=== PATIENT | female | born 1950 | race Caucasian/White ===

== ENCOUNTER 2018-09-08 10:13 | Inpatient (IN) | payer MEDICARE ==
[~2018-09-08] VITALS: Ht 157.5 cm; Wt 55.0 kg
[~2018-09-08 10:13] MED LIST: MAG355OR18 PO; PANT-47 PO
[2018-09-08] MEDS ORDERED: loperamide 2mg capsule PO PRN (11:20)
[2018-09-08] MEDS ORDERED: tuberculin, purif. prot. deriv. 5 units/0.1ml ID ONE (11:20)
[2018-09-08] MEDS ORDERED: acetaminophen 325mg tablet PO PRN ×2 (11:20)
[2018-09-08] MEDS ORDERED: mag hydrox/Alum hydrox/simeth 30ml oral suspension PO PRN (11:20)
[2018-09-08] MEDS ORDERED: hydrOXYzine 25 MG tablet PO PRN (11:20)
--- NOTE | 2018-09-08 12:49 | NUR ---
Admission note. Client admitted to [facility] Unit at 1130 hours today. Patient is here on a 5150 hold for DTS after she took an intentional overdose of her prescription medications in an attempt to end her life. She was on PCU prior to admission to [facility] and stabilized there. Client was pleasant and compliant with admission process. Pt was read her advisement and understands the reasons for her admission. Client currently expresses no desire to harm herself or others. Belongings were checked and placed per protocol. MRSA swab collected and all assessments for admission were completed. Client is alert and oriented x 4. Vital signs are currently stable..
[2018-09-08] MEDS ORDERED: duloxetine 30mg CAPSULE.DR PO ONE (18:10)
[2018-09-08] MEDS ORDERED: LORazepam 1 MG tablet PO PRN (18:10)
[2018-09-08 20:00] VITALS: BP 148/81
[2018-09-08] MEDS: quetiapine 100mg tablet PO SCH (21:36)
--- NOTE | 2018-09-09 01:00 | NUR ---
Nursing Progress Note: Legal hold: Voluntary Client on involuntary status for DTS. Report received from nurse Ingris RN with use of SBAR. Why are they here: Patient is here on a 5150 hold for DTS after she took an intentional overdose of her prescription medications in an attempt to end her life after experiencing overwhelming anxiety/stress resulting from multiple life stressors. She was stabilized on PCU prior to admission to [facility]. Assessment What has happened this shift: Pt was visible on unit at shift change. Pt was later seen sitting in the group waiting for visitation. Pt's and son came to visit with patient. Appropriate conversation appeared to be happening. 1:1 assessment was completed at bedside along with PPD placement. Pt is alert and explains why she is here. Pt doesn't seem grasp the severity of her suicide attempt. Pt is very nonchalant bloom she speaks about it. Pt states she has no thoughts of harming her self at the time this interview. Pt states she has been depressed. Pt has many stressors that have contributed to her feeling this way. Pt states she feels overwhelmed because of financial troubles. Pt wants to sell her house, but her doesn't. "I feel like my family is falling apart." Pt states she has some resentment towards her because he is providing for them financially. Pt reports some coping skills are reading the Bible and/or listening to nondenominational music, pt reports these have not been helping and needs help. Pt states she feels safe here. Pt is being started on Cymbalta 30mg daily and Seroquel 100mg HS. S/I, H/I: Pt denies. None observed. A/VH: Pt denies. None observed. Sleep: Currently sleeping. See sleep assessment notation. ADL's: Independent. Pt uses a pillow to sit for back pain. Group attendance: restaurant shift leader, no group. Were meds taken: Medication compliant. Any med S/E: None reported or observed. Mental Status Exam Appearance: Neat and clean, dressed appropriate for unit. Eye contact: Good Behavior: Cooperative, guarded Speech:Soft, normal rate/rhythm Mood: Depressed, anxious, quiet Affect: Constricted Thought process: Linear Thought Content: Pt answers questions, but doesn't offer more conversation Cognition: Intact Insight: Fair Judgment: Poor Interventions PRN's used: None Therapeutic interventions: 1:1 to assess for severity of symptoms, therapeutic listening/conversation, orient to unit and reinforce reality, medication administration/education/monitoring, Q 15 min safety checks. Restraints/seclusion/emergency medication: N/A Justification of Continued Inpatient Treatment: Pt needs interruption of current crisis with initiation and ajustment of medication in a safe and therapeutic environment.
[2018-09-09 07:36] VITALS: BP 128/69
[2018-09-09] MEDS: duloxetine 30mg CAPSULE.DR PO SCH (07:57)
[2018-09-09] MEDS: magnesium hydroxide 30ml (MOM) UD suspension PO PRN (09:43)
--- NOTE | 2018-09-09 10:33 | NUR ---
Malnutrition consult: Pt admit w/ major recurrent depression. PO 75-100% meals meeting needs. Per RN; pt requested pureed/thin liquid diet due to pain w/ swallowing at this time; no hx dysphagia. Given lack of accurate wt hx, good PO, no edema/wounds, and normal strength pt does not meet malnutrition criteria at this time. Will continue to monitor. Addendum: 09/09/18 at [address] Amended: Links added.
[2018-09-09 10:44] LABS: CHOL/HDL RATIO 2.9 (0.00-4.99); CHOLESTEROL 213 MG/DL (0-200); HDL CHOLESTEROL 73 MG/DL (35-60); LDL CHOLESTEROL 123 MG/DL (50-100); TRIGLYCERIDES 92 MG/DL (20-135)
--- NOTE | 2018-09-09 11:43 | NUR ---
Nursing Progress Note: Legal hold: 5150 Client on involuntary status for DTS. Report received from nurse Alka Brown RN with use of SBAR. Why are they here: Patient is here on a 5150 hold for DTS after she took an intentional overdose of her prescription medications in an attempt to end her life after experiencing overwhelming anxiety/stress resulting from multiple life stressors. She was stabilized on PCU prior to admission to [facility]. Assessment What has happened this shift: Patient awakened for medications and breakfast. She is pleasant and cooperative. 1:1 in patients room. She initially stated that she had an unintentional overdose, but quickly corrected herself. Pt. states that she has no interests or hobbies, that she lies in bed all the time, and has no energy to do anything. Pt. states that they have a large home on property and they cannot adequately keep it up. She feels that she would be happier in a smaller home. She is worried about finances and does not think they should have took on a large mortgage at this stage in their life. She worries about her 's health, high BP, high blood sugars; and "what if he , I wouldn't know how to do anything". Patient's did come in for visit and looks relatively healthy. Pt perseverates on the negatives, and does not believe there is anything worth living for. S/I, H/I: Pt denies. A/VH: Pt denies. None observed. Sleep: 7 hrs. at NOC. ADL's: Independent. Group attendance: Yes. Were meds taken: Medication compliant. Any med S/E: None reported or observed. Mental Status Exam Appearance: Neat and clean, dressed appropriate for unit. Eye contact: Good Behavior: Cooperative, pleasant Speech:Soft, normal rate/rhythm Mood: Depressed, anxious, quiet Affect: Constricted Thought process: Linear. Poverty of thought. Anhedonia. Thought Content: Financial concerns, worries excessively. Cognition: Intact Insight: Poor. Judgment: Poor Interventions PRN's used: None Therapeutic interventions: 1:1 to assess for severity of symptoms, therapeutic listening/conversation, orient to unit and reinforce reality, medication administration/education/monitoring, Q 15 min safety checks. Restraints/seclusion/emergency medication: N/A Justification of Continued Inpatient Treatment: Pt needs interruption of current crisis with initiation and adjustments of medication in a safe and therapeutic environment to prevent further decompensation and likelihood of inpatient readmission.
[2018-09-09] MEDS: pantoprazole 40mg Tablet.DR PO SCH (12:37)
--- NOTE | 2018-09-09 18:39 | NUR ---
Patient in room MH 322. I have received report from CHENTE Amado and had the opportunity to ask questions and assume patient care.
[2018-09-09 19:37] VITALS: BP 105/75
[2018-09-09] MEDS: quetiapine 100mg tablet PO SCH (20:53)
--- NOTE | 2018-09-10 00:53 | NUR ---
Nursing Progress Note: Legal hold: 5150 Client on involuntary status for DTS. Report received from nurse Ingris RN with use of SBAR. Why are they here: Patient is here on a 5150 hold for DTS after she took an intentional overdose of her prescription medications in an attempt to end her life after experiencing overwhelming anxiety/stress resulting from multiple life stressors. She was stabilized on PCU prior to admission to [facility]. Assessment What has happened this shift: Patient was lying in bed at beginning of shift. States she suffers from depression due to the health of her who suffers from cirrhosis of the liver, increased blood pressures and blood sugars, and who has prostate cancer. She states her has a good attitude towards his health and he feels his outcome will be okay. She further states she is trying to have a positive attitude such as he demonstrates. Patient continued to stay in bed for the remainder of the shift only exiting her bed when using the bathroom or to sit up to take medications. Pleasant demeanor. S/I, H/I: Pt denies. A/VH: Pt denies. None observed. Sleep: ADL's: Independent. Group attendance: N/A Were meds taken: Medication compliant. Any med S/E: None reported or observed. Mental Status Exam Appearance: Neat and clean, dressed appropriate for unit. Eye contact: Good Behavior: Cooperative, pleasant Speech:Soft, normal rate/rhythm Mood: Depressed, anxious, quiet Affect: Constricted Thought process: Linear. Poverty of thought. Anhedonia. Thought Content: Worries excessively. Cognition: Intact Insight: Poor. Judgment: Poor Interventions PRN's used: None Therapeutic interventions: 1:1 to assess for severity of symptoms, therapeutic listening/conversation, orient to unit and reinforce reality, medication administration/education/monitoring, Q 15 min safety checks. Restraints/seclusion/emergency medication: N/A Justification of Continued Inpatient Treatment: Pt needs interruption of current crisis with initiation and adjustments of medication in a safe and therapeutic environment to prevent further decompensation and likelihood of inpatient readmission.
[2018-09-10 08:16] VITALS: BP 141/80
[2018-09-10] MEDS: pantoprazole 40mg Tablet.DR PO SCH (08:24)
[2018-09-10] MEDS: duloxetine 30mg CAPSULE.DR PO SCH (08:24)
--- NOTE | 2018-09-10 12:40 | NUR ---
Nursing Progress Note: Legal hold: 5150 Client on involuntary status for DTS. Report received from nurse Alka Brown RN with use of SBAR. Why are they here: Patient is here on a 5150 hold for DTS after she took an intentional overdose of her prescription medications in an attempt to end her life after experiencing overwhelming anxiety/stress resulting from multiple life stressors. She was stabilized on PCU prior to admission to [facility]. Assessment What has happened this shift: Patient awakened for breakfast and medications. Patient is polite, calm and cooperative. 1:1 in patients room. She states that she received some literature on CBT and figuring out how to change the way she can change her negative perspective. Educated her on daily goals and snf goals, which she has not done. States that her does everything for her, and has stopped trying to push her to do things. is now in [place] for family reunion, she perseverates on the bad things that could happen to him. Attempted to reframe things for her, patient did seem a little encouraged.m Patient goes by "Ann", and likes room temp water. Patient complains of back pain and is encouraged to increase dose of Cymbalta, as this medication has a dual purpose of pain management/antidepressant. Pt. is hesitant to take medications, even Tylenol. S/I, H/I: Pt denies. A/VH: Pt denies. None observed. Sleep: 8.[address] [facility]. ADL's: Independent. Group attendance: Yes. Were meds taken: Medication compliant. Any med S/E: None reported or observed. Mental Status Exam Appearance: Neat and clean, dressed appropriate for unit. Eye contact: Good Behavior: Cooperative, pleasant Speech:Soft, normal rate/rhythm Mood: Depressed, anxious, quiet Affect: Constricted Thought process: Linear. Poverty of thought. Anhedonia. Thought Content: Financial concerns, worries excessively about . Cognition: Intact Insight: Poor. Judgment: Poor Interventions PRN's used: None Therapeutic interventions: 1:1 to assess for severity of symptoms, therapeutic listening/conversation, orient to unit and reinforce reality, CBT education, medication administration/education/monitoring, Q 15 min safety checks. Restraints/seclusion/emergency medication: N/A Justification of Continued Inpatient Treatment: Pt needs interruption of current crisis with initiation and adjustments of medication in a safe and therapeutic environment to prevent further decompensation and likelihood of inpatient readmission.
[2018-09-10 20:17] VITALS: BP 143/76
[2018-09-10] MEDS: quetiapine 100mg tablet PO SCH (20:20)
--- NOTE | 2018-09-10 21:04 | NUR ---
Nursing Progress Note: Legal hold: 5150 Client on involuntary status for DTS. Report received from nurse Ingris RN with use of SBAR. Why are they here: Patient is here on a 5150 hold for DTS after she took an intentional overdose of her prescription medications in an attempt to end her life after experiencing overwhelming anxiety/stress resulting from multiple life stressors. She was stabilized on PCU prior to admission to [facility]. Assessment What has happened this shift: Patient awake and lying in bed. She states that her back is hurting and thats why she is lying down. Patient is polite, calm and cooperative. She perseverates on the bad things that could happen to him. Attempted to reframe things for her, patient did seem a little encouraged.m Patient goes by "Ann", and likes room temp water. Patient complains of back pain and is encouraged to increase dose of Cymbalta, as this medication has a dual purpose of pain management/antidepressant. Pt. is hesitant to take medications, even Tylenol. S/I, H/I: Pt denies. A/VH: Pt denies. None observed. Sleep: 8.25 hrs. at NOC. ADL's: Independent. Group attendance: Yes. Were meds taken: Medication compliant. Any med S/E: None reported or observed. Mental Status Exam Appearance: Neat and clean, dressed appropriate for unit. Eye contact: Good Behavior: Cooperative, pleasant Speech:Soft, normal rate/rhythm Mood: Depressed, anxious, quiet Affect: Constricted Thought process: Linear. Poverty of thought. Anhedonia. Thought Content: Financial concerns, worries excessively about . Cognition: Intact Insight: Poor. Judgment: Poor Interventions PRN's used: None Therapeutic interventions: 1:1 to assess for severity of symptoms, therapeutic listening/conversation, orient to unit and reinforce reality, CBT education, medication administration/education/monitoring, Q 15 min safety checks. Restraints/seclusion/emergency medication: N/A Justification of Continued Inpatient Treatment: Pt needs interruption of current crisis with initiation and adjustments of medication in a safe and therapeutic environment to prevent further decompensation and likelihood of inpatient readmission.
[2018-09-11] MEDS: pantoprazole 40mg Tablet.DR PO SCH (07:45)
[2018-09-11] MEDS: duloxetine 30mg CAPSULE.DR PO SCH (07:45)
[2018-09-11 07:56] VITALS: BP 141/70
--- NOTE | 2018-09-11 17:17 | NUR ---
Nursing Progress Note: Legal hold: 5150 Client on involuntary status for DTS. Report received from nurse Sari RN with use of SBAR. Why are they here: Patient is here on a 5150 hold for DTS after she took an intentional overdose of her prescription medications in an attempt to end her life after experiencing overwhelming anxiety/stress resulting from multiple life stressors. She was stabilized on PCU prior to admission to [facility]. Assessment What has happened this shift: Patient goes by "Ann." Patient awake and lying in bed. Patient is polite, calm and cooperative. Her main complaint is not being able to sleep. Reports she woke up at 0300 and was unable to go back to sleep. She requested to move beds as she c/o the light shining in her eyes. Once her bed was switched she later c/o needing a med switch to assist with sleep. She reports feeling depressed today but denies SI. Patient complains of headache but denies wanting any PRNs. She requests to have her razor to trim her facial hair. Denies any SEs at this time, none were objectively observed. S/I, H/I: Pt denies. A/VH: Pt denies. None observed. Sleep: 8.75 hrs NOC. ADL's: Independent. Group attendance: Yes. Were meds taken: Medication compliant. Any med S/E: None reported or observed. Mental Status Exam Appearance: Neat and clean, dressed appropriate for unit. Eye contact: Direct Behavior: Cooperative, pleasant Speech:Soft, normal rate/rhythm Mood: Depressed Affect: congruent Thought process: Anhedonia. Thought Content: Worries excessively about & lack of sleep Cognition: Intact Insight: Poor. Judgment: Poor Interventions PRN's used: None Therapeutic interventions: 1:1 to assess for severity of symptoms, therapeutic listening/conversation, orient to unit and reinforce reality, CBT education, medication administration/education/monitoring, Q 15 min safety checks. Restraints/seclusion/emergency medication: N/A Justification of Continued Inpatient Treatment: Pt needs interruption of current crisis with initiation and adjustments of medication in a safe and therapeutic environment to prevent further decompensation and likelihood of inpatient readmission.
[2018-09-11 20:19] VITALS: BP 147/76
[2018-09-11] MEDS ORDERED: quetiapine 100mg tablet PO SCH (21:00)
--- NOTE | 2018-09-11 21:49 | NUR ---
Nursing Progress Note: Legal hold: 5150 Client on involuntary status for DTS. Report received from nurse Sari RN with use of SBAR. Why are they here: Patient is here on a 5150 hold for DTS after she took an intentional overdose of her prescription medications in an attempt to end her life after experiencing overwhelming anxiety/stress resulting from multiple life stressors. She was stabilized on PCU prior to admission to [facility]. Assessment What has happened this shift: Patient goes by "Ann." Patient awake and lying in bed. Patient is polite, calm and cooperative. Her main complaint is not being able to sleep. Reports she woke up at 0300 and was unable to go back to sleep. She requested to move beds as she c/o the light shining in her eyes. Once her bed was switched she later c/o needing a med switch to assist with sleep. She reports feeling depressed today but denies SI. Patient complains of headache but denies wanting any PRNs.Patient spoke with the provider and received a increase Seroquel for sleep. Denies any SEs at this time, none were objectively observed. S/I, H/I: Pt denies. A/VH: Pt denies. None observed. Sleep: 8.75 hrs NOC. ADL's: Independent. Group attendance: Yes. Were meds taken: Medication compliant. Any med S/E: None reported or observed. Mental Status Exam Appearance: Neat and clean, dressed appropriate for unit. Eye contact: Direct Behavior: Cooperative, pleasant Speech:Soft, normal rate/rhythm Mood: Depressed Affect: congruent Thought process: Anhedonia. Thought Content: Worries excessively about & lack of sleep Cognition: Intact Insight: Poor. Judgment: Poor Interventions PRN's used: None Therapeutic interventions: 1:1 to assess for severity of symptoms, therapeutic listening/conversation, orient to unit and reinforce reality, CBT education, medication administration/education/monitoring, Q 15 min safety checks. Restraints/seclusion/emergency medication: N/A Justification of Continued Inpatient Treatment: Pt needs interruption of current crisis with initiation and adjustments of medication in a safe and therapeutic environment to prevent further decompensation and likelihood of inpatient readmission.
[2018-09-12 07:56] VITALS: BP 122/74
[2018-09-12] MEDS: pantoprazole 40mg Tablet.DR PO SCH (08:00)
[2018-09-12] MEDS: duloxetine 30mg CAPSULE.DR PO SCH (08:00)
--- NOTE | 2018-09-12 15:30 | NUR ---
Nursing Progress Note: Legal hold: VOL Client on involuntary status for DTS. Report received from nurse Sari RN with use of SBAR. Why are they here: Patient initially here on a 5150 hold, now here [facility] for DTS after she took an intentional overdose of her prescription medications in an attempt to end her life after experiencing overwhelming anxiety/stress resulting from multiple life stressors. She was stabilized on PCU prior to admission to [facility]. Assessment What has happened this shift: Patient goes by "Ann." Patient asleep at change of shift. Patient is polite, calm and cooperative. She reports feeling depressed today but denies SI. Today patient complains of dizziness from the Cymbalta but denies wanting any PRNs. Her BP was 122/74 this AM. Yesterday pt c/o headache from Cymbalta. She requests to have her razor from her locked belongings to trim her facial hair, techs notified. Pt continues to c/o lack of sleep but does confirm she remembers having dreams and reported sleep from NOC shift was 8.0hrs. Pts son visited today and brought her Progesterone 100mg capsules prescribed by Dr Wells. Slat Basket Maker Machine notified Dr. Vann and placed them in the pharmacy to be stored. Dr Vann resumed her Progesterone 300mg QHS order today. Slat Basket Maker Machine also submitted DESTINY for Dr Wells to assist her hormone therapy. S/I, H/I: Pt denies. A/VH: Pt denies. None observed. Sleep: 8.0 hrs NOC, pt denies feeling well rested. ADL's: Independent. Group attendance: Were meds taken: Medication compliant. Any med S/E: Pt c/o headache from Cymbalta yest, today c/o dizziness (BP 122/74) Mental Status Exam Appearance: Neat and clean, dressed appropriate for unit. Eye contact: Direct Behavior: Cooperative, pleasant Speech: Soft, normal rate/rhythm Mood: Depressed Affect: congruent Thought process: Anhedonia. Thought Content: Worries excessively about , lack of sleep & SEs from Cymbalta Cognition: Intact Insight: Poor Judgment: Poor Interventions PRN's used: Therapeutic interventions: 1:1 to assess for severity of symptoms, therapeutic listening/conversation, orient to unit and reinforce reality, CBT education, medication administration/education/monitoring, Q 15 min safety checks. Restraints/seclusion/emergency medication: N/A Justification of Continued Inpatient Treatment: Pt needs interruption of current crisis with initiation and adjustments of medication in a safe and therapeutic environment to prevent further decompensation and likelihood of inpatient readmission.
[2018-09-12 20:00] VITALS: BP 107/61
[2018-09-12] MEDS ORDERED: TYPE IN GENERIC & BRAND NAME OF PATIENT MED STRENGTH & FORM PO SCH (21:00)
[2018-09-12] MEDS ORDERED: PROGESTERONE PO SCH ×2 (21:00)
[2018-09-12] MEDS ORDERED: quetiapine 100mg tablet PO SCH (21:00)
[2018-09-12] MEDS ORDERED: PROGESTERONE 300 MG PO SCH (21:00)
--- NOTE | 2018-09-12 21:56 | NUR ---
vazquez Progress Note: Legal hold: [facility] Client on involuntary status for DTS. Report received from nurse Paul RN with use of SBAR. Why are they here: Patient initially here on a 5150 hold, now here [facility] for DTS after she took an intentional overdose of her prescription medications in an attempt to end her life after experiencing overwhelming anxiety/stress resulting from multiple life stressors. She was stabilized on PCU prior to admission to [facility]. Assessment What has happened this shift: Patient goes by "Ann." Patient in room at change of shift. Patient is polite, calm and cooperative. She reports feeling depressed today but denies SI. Pt continues to c/o lack of sleep but does confirm she remembers having dreams and reported sleep from NOC shift was 8.0hrs. Pts son visited today and brought her Progesterone 100mg capsules prescribed by Dr Wells. Plant Wrapper notified Dr. Vann and placed them in the pharmacy to be stored. Dr Vann resumed her Progesterone 300mg QHS order today. Plant Wrapper also submitted DESTINY for Dr Wells to assist her hormone therapy. S/I, H/I: Pt denies. A/VH: Pt denies. None observed. Sleep: 8.0 hrs NOC, pt denies feeling well rested. ADL's: Independent. Group attendance: Were meds taken: Medication compliant. Any med S/E: Pt c/o headache from Cymbalta yest, today c/o dizziness (BP 122/74) Mental Status Exam Appearance: Neat and clean, dressed appropriate for unit. Eye contact: Direct Behavior: Cooperative, pleasant Speech: Soft, normal rate/rhythm Mood: Depressed Affect: congruent Thought process: Anhedonia. Thought Content: Worries excessively about , lack of sleep & SEs from Cymbalta Cognition: Intact Insight: Poor Judgment: Poor Interventions PRN's used: Therapeutic interventions: 1:1 to assess for severity of symptoms, therapeutic listening/conversation, orient to unit and reinforce reality, CBT education, medication administration/education/monitoring, Q 15 min safety checks. Restraints/seclusion/emergency medication: N/A Justification of Continued Inpatient Treatment: Pt needs interruption of current crisis with initiation and adjustments of medication in a safe and therapeutic environment to prevent further decompensation and likelihood of inpatient readmission.
[2018-09-12] MEDS: quetiapine 100mg tablet PO PRN (22:29)
[2018-09-13 07:29] VITALS: BP 113/64
[2018-09-13] MEDS: pantoprazole 40mg Tablet.DR PO SCH (07:50)
[2018-09-13] MEDS: duloxetine 30mg CAPSULE.DR PO SCH (07:50)
[2018-09-13] MEDS: magnesium hydroxide 30ml (MOM) UD suspension PO PRN (08:27)
--- NOTE | 2018-09-13 16:39 | NUR ---
NURSING PROGRESS NOTE Legal hold: VOL Client on involuntary status for DTS. Report received from nurse Sari RN with use of SBAR. Why are they here: Patient initially here on a 5150 hold, now here VOL for DTS after she took an intentional overdose of her prescription medications in an attempt to end her life after experiencing overwhelming anxiety/stress resulting from multiple life stressors. She was stabilized on PCU prior to admission to [facility]. Assessment What has happened this shift: Patient goes by "Ann." The patient was asleep at change of shift. Depressed mood and constricted affect. Pleasant and cooperative. Attends groups and meals with peers. C/O back pain from osteoporosis which is "only relieved by laying down." Reports feeling overwhelmed and having anxiety about her 's health, and not knowing about "the finances" if he were to . The patient has distorted thinking, for example, she has had a BM yesterday and today which she stated were "OK" but still asked for MOM, her visits her and appears in reasonable health. She is open to working on CBT and understands it can help with distortion of thoughts. Denies suicidal thoughts today. S/I, H/I: Pt denies. A/VH: Pt denies. None observed. Sleep: Naps ADL's: Independent. Group attendance: x2 Were meds taken: Medication compliant. Any med S/E: None Mental Status Exam Appearance: Neat and clean, dressed appropriate for unit. Eye contact: Direct Behavior: Cooperative, pleasant Speech: Soft, normal rate/rhythm Mood: Depressed Affect: constricted Thought process: Anhedonia. Thought Content: Worries excessively about , lack of sleep & SEs from Cymbalta Cognition: Alert and oriented Insight: Poor Judgment: Poor Interventions PRN's used: None Therapeutic interventions: 1:1 to assess for severity of symptoms, therapeutic listening/conversation, orient to unit and reinforce reality, CBT education, medication administration/education/monitoring, Q 15 min safety checks. Restraints/seclusion/emergency medication: N/A Justification of Continued Inpatient Treatment: Pt needs interruption of current crisis with initiation and adjustments of medication in a safe and therapeutic environment to prevent further decompensation and likelihood of inpatient readmission.
[2018-09-13 19:30] VITALS: BP 134/73
[2018-09-13] MEDS ORDERED: TYPE IN GENERIC & BRAND NAME OF PATIENT MED STRENGTH & FORM PO SCH (21:00)
[2018-09-13] MEDS: quetiapine 100mg tablet PO PRN (22:51)
--- NOTE | 2018-09-14 00:16 | NUR ---
NURSING PROGRESS NOTE Legal hold: VOLUNTARY Client on voluntary status for DTS. Report received from nurse Eddie RN with use of SBAR. Why are they here: Patient initially here on a 5150 hold, now here VOL for DTS after she took an intentional overdose of her prescription medications in an attempt to end her life after experiencing overwhelming anxiety/stress resulting from multiple life stressors. She was stabilized on PCU prior to admission to [facility]. Assessment What has happened this shift: Pt was in her room at shift change. Pt is up wanting to use phone, then returns and is working on a book she received from her son. Pt reports anxiety and depression both a /10. Pt reports she has "a little hope." Pt has a blunted affect. When asked how she is feeling "I feel numb, I feel blah." Pt still reports passive SI. Pt reports anhedonia, "I was out going and energetic just a few months ago." Pt feels she has to take care of everything with her family and this overwhelms hers. [place], when asked how pt feels about this "I am okay because I able to talk to him." Pt's speech is soft and monotone. Pt received a visit from her son and stated "it was good." S/I, H/I: Pt reports passive SI. A/VH: Pt denies. None observed. Sleep: Currently sleeping. See sleep assessment notation. ADL's: Independent. 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 Any med S/E: None reported or observed Mental Status Exam Appearance: Neat and clean, dressed appropriate for unit. Eye contact: Direct Behavior: Cooperative, pleasant Speech: Soft, normal rate/rhythm Mood: Depressed Affect: Constricted with some brightening Thought process: Linear Thought Content: Worries excessively about . Cognition: Alert and oriented Insight: Poor Judgment: Poor Interventions PRN's used: Seroquel Therapeutic interventions: 1:1 to assess for severity of symptoms, therapeutic listening/conversation, orient to unit and reinforce reality, CBT education, medication administration/education/monitoring, Q 15 min safety checks. Restraints/seclusion/emergency medication: N/A Justification of Continued Inpatient Treatment: Pt needs interruption of current crisis with initiation and adjustments of medication in a safe and therapeutic environment to prevent further decompensation and likelihood of inpatient readmission.
[2018-09-14 07:54] VITALS: BP 117/70
[2018-09-14] MEDS: pantoprazole 40mg Tablet.DR PO SCH (08:25)
[2018-09-14] MEDS: duloxetine 30mg CAPSULE.DR PO SCH (08:25)
--- NOTE | 2018-09-14 13:16 | NUR ---
NURSING PROGRESS NOTE Legal hold: VOL Client on involuntary status for DTS. Report received from nurse Jenny RN with use of SBAR. Why are they here: Patient initially here on a 5150 hold, now here VOL for DTS after she took an intentional overdose of her prescription medications in an attempt to end her life after experiencing overwhelming anxiety/stress resulting from multiple life stressors. She was stabilized on PCU prior to admission to [facility]. Assessment What has happened this shift: Patient goes by "Ann." The patient was asleep at change of shift. Depressed mood and constricted affect. Pleasant and cooperative. Attends groups and meals with peers. Reports feeling "depressed" but denies having any suicidal thoughts. When a loud incident occurred on the unit with another patient she removed herself stating, "I'm going to my room." Education was provided on coping skills with recognition for her ability to cope with a difficult situation. S/I, H/I: Pt denies. A/VH: Pt denies. None observed. Sleep: Naps ADL's: Independent. Group attendance: x2 Were meds taken: Medication compliant. Any med S/E: None Mental Status Exam Appearance: Neat and clean, dressed appropriate for unit. Eye contact: Direct Behavior: Cooperative, pleasant Speech: Soft, normal rate/rhythm Mood: Depressed Affect: constricted Thought process: Family stressors Thought Content: Worries excessively about Cognition: Alert and oriented Insight: Poor Judgment: Poor Interventions PRN's used: None Therapeutic interventions: 1:1 to assess for severity of symptoms, therapeutic listening/conversation, orient to unit and reinforce reality, CBT education, medication administration/education/monitoring, Q 15 min safety checks. Restraints/seclusion/emergency medication: N/A Justification of Continued Inpatient Treatment: Pt needs interruption of current crisis with initiation and adjustments of medication in a safe and therapeutic environment to prevent further decompensation and likelihood of inpatient readmission.
[2018-09-14 20:00] VITALS: BP 131/92
[2018-09-14] MEDS ORDERED: OLANZAPINE 5 MG TABLET PO PRN (20:00)
[2018-09-14] MEDS: PROGESTERONE PO SCH (21:05)
[2018-09-14] MEDS: LORazepam 1 MG tablet PO PRN (22:47)
--- NOTE | 2018-09-14 23:52 | NUR ---
NURSING PROGRESS NOTE Legal hold: VOLUNTARY Client on voluntary status for DTS. Report received from nurse Eddie RN with use of SBAR. Why are they here: Patient initially here on a 5150 hold, now here VOL for DTS after she took an intentional overdose of her prescription medications in an attempt to end her life after experiencing overwhelming anxiety/stress resulting from multiple life stressors. She was stabilized on PCU prior to admission to [facility]. Assessment What has happened this shift: Pt was lying in bed talking on phone at shift change. Pt remained in bed most of the shift reading. Pt states she had been feeling dizzy and thinks it was r/t the HS Seroquel. Seroquel 100mg HS was changed to Zyprexa 5mg HS. Pt was quiet this shift and wasn't up to talking. Pt was medication compliant. Pt's Progesterone was increased to 300mg HS, pt feels the Progesterone is helping her mood. Pt still reports depression with some brightening, "I feel a little better." Pt denies SI at this time. Pt retired to bed around 2100 and was up about 2300 requesting and PRN Ativan and Zyprexa. Pt reports feeling anxious and unable to sleep - anxiety 09/29. Medications were effective. S/I, H/I: Pt denies. None observed. A/VH: Pt denies. None observed. Sleep: Currently sleeping. See sleep assessment notation. PRN Zyprexa 5mg administered. ADL's: Independent. 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 Any med S/E: None reported or observed Mental Status Exam Appearance: Neat and clean, dressed appropriate for unit. Eye contact: Direct Behavior: Cooperative, pleasant Speech: Soft, normal rate/rhythm Mood: Depressed Affect: Constricted with some brightening Thought process: Linear Thought Content: Ready for to come home. Cognition: Alert and oriented Insight: Poor Judgment: Poor Interventions PRN's used: Zyprexa 5mg, Ativan 1mg Therapeutic interventions: 1:1 to assess for severity of symptoms, therapeutic listening/conversation, orient to unit and reinforce reality, CBT education, medication administration/education/monitoring, Q 15 min safety checks. Restraints/seclusion/emergency medication: N/A Justification of Continued Inpatient Treatment: Pt needs interruption of current crisis with initiation and adjustments of medication in a safe and therapeutic environment to prevent further decompensation and likelihood of inpatient readmission.
[2018-09-15 08:00] VITALS: BP 125/79
[2018-09-15] MEDS: duloxetine 30mg CAPSULE.DR PO SCH (08:07)
[2018-09-15] MEDS: pantoprazole 40mg Tablet.DR PO SCH (08:08)
[2018-09-15 08:25] VITALS: BP 125/79
--- NOTE | 2018-09-15 13:59 | NUR ---
Initial: Pt admit with depression. Pt currently on pureed diet with documented 100% PO intake throughout LOS meeting nutrient needs. LBM 09/14. No edema or wounds. No nutrition diagnosis at this time. Will continue to follow. Recommendations: 1) Continue pureed diet per pt request 2) Bowel care PRN 3) Weekly wt Addendum: 09/15/18 at [address] Amended: Links added.
--- NOTE | 2018-09-15 15:03 | NUR ---
NURSING PROGRESS NOTE Legal hold: VOL Client on involuntary status for DTS. Report received from nurse CHENTE Freedman with use of SBAR. Why are they here: Patient initially here on a 5150 hold, now here VOL for DTS after she took an intentional overdose of her prescription medications in an attempt to end her life after experiencing overwhelming anxiety/stress resulting from multiple life stressors. She was stabilized on PCU prior to admission to [facility]. Assessment What has happened this shift: Patient goes by "Ann." The patient was asleep at change of shift, she was up to breakfast and medication compliant. She is friendly with others and cooperative. Depressed mood with blunted affect. Denies suicidal thoughts. She is at times anxious about the future with distorted thinking (perseverates on 's health, taking care of her home and finances.) States she is feeling a bit better and attributes this to hormone therapy. Eating well and attending all groups. S/I, H/I: Pt denies. A/VH: Pt denies. None observed. Sleep: Naps ADL's: Independent. Group attendance: x2 Were meds taken: Medication compliant. Any med S/E: None Mental Status Exam Appearance: Neat and clean, dressed appropriate for unit. Eye contact: Direct Behavior: Cooperative, pleasant Speech: Soft, normal rate/rhythm Mood: Depressed Affect: blunted Thought process: Family stressors Thought Content: Worries excessively about Cognition: Alert and oriented Insight: Poor Judgment: Poor Interventions PRN's used: None Therapeutic interventions: 1:1 to assess for severity of symptoms, therapeutic listening/conversation, orient to unit and reinforce reality, CBT education, medication administration/education/monitoring, Q 15 min safety checks. Restraints/seclusion/emergency medication: N/A Justification of Continued Inpatient Treatment: Pt needs interruption of current crisis with initiation and adjustments of medication in a safe and therapeutic environment to prevent further decompensation and likelihood of inpatient readmission.
[2018-09-15] MEDS ORDERED: OLANZapine 2.5MG tablet PO PRN (17:10)
[2018-09-15 20:05] VITALS: BP 110/68
[2018-09-15] MEDS: PROGESTERONE PO SCH (21:01)
--- NOTE | 2018-09-15 22:54 | NUR ---
NURSING PROGRESS NOTE Legal hold: VOLUNTARY Client on voluntary status for DTS. Report received from nurse Eddie RN with use of SBAR. Why are they here: Patient initially here on a 5150 hold, now here VOL for DTS after she took an intentional overdose of her prescription medications in an attempt to end her life after experiencing overwhelming anxiety/stress resulting from multiple life stressors. She was stabilized on PCU prior to admission to [facility]. Assessment What has happened this shift: Pt was lying in bed reading at shift change. Pt is up for HS snack. Pt cooperative with 1:1 assessment. Pt states her is "disappointed that she took the Ativan and Zyprexa last night to sleep instead of just the Progesterone." This bothers her, explained that last night was her first night on the 300 mg of Progesterone increased from 200 mg. Pt denies SI. Reports depression 04/29. Pt states will be in tomorrow for a visit if he gets back into town on time. S/I, H/I: Pt denies. None observed. A/VH: Pt denies. None observed. Sleep: Currently sleeping. See sleep assessment notation. ADL's: Independent. 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 Any med S/E: None reported or observed Mental Status Exam Appearance: Neat and clean, dressed appropriate for unit. Eye contact: Direct Behavior: Cooperative, pleasant Speech: Soft, normal rate/rhythm Mood: Depressed Affect: Constricted with some brightening Thought process: Linear Thought Content: Family stressors Cognition: Alert and oriented Insight: Poor Judgment: Poor Interventions PRN's used: None Therapeutic interventions: 1:1 to assess for severity of symptoms, therapeutic listening/conversation, orient to unit and reinforce reality, CBT education, medication administration/education/monitoring, Q 15 min safety checks. Restraints/seclusion/emergency medication: N/A Justification of Continued Inpatient Treatment: Pt needs interruption of current crisis with initiation and adjustments of medication in a safe and therapeutic environment to prevent further decompensation and likelihood of inpatient readmission. Addendum: 09/16/18 at 0359 by Dorene Granados RN PRN - Zyprexa 7.5mg requested by pt around 3461.
[2018-09-16] MEDS: pantoprazole 40mg Tablet.DR PO SCH (07:35)
[2018-09-16] MEDS: duloxetine 30mg CAPSULE.DR PO SCH (07:35)
[2018-09-16 07:55] VITALS: BP 117/57
--- NOTE | 2018-09-16 16:18 | NUR ---
NURSING PROGRESS NOTE: Lexis Juarez Legal hold: VOLUNTARY Client on voluntary status for DTS. Report received from nurse Eddie RN with use of SBAR. Why are they here: Patient initially here on a 5150 hold, now here VOL for DTS after she took an intentional overdose of her prescription medications in an attempt to end her life after experiencing overwhelming anxiety/stress resulting from multiple life stressors. She was stabilized on PCU prior to admission to [facility]. Assessment What has happened this shift: Pt was lying in bed just waking up at shift change. States she slept well when she slept but had difficulty falling asleep. She rates both her anxiety and depression at a 7/10. Denies current SI. Requested again for her meal to be changed to a regular diet as her esophagus is not painful at this time. Observed on unit walking, interacting with other clients on the unit. No obvious s/s of excessive depression or anxiety. S/I, H/I: Pt denies. A/VH: Pt denies. Sleep: 8.25 ADL's: Independent. Group attendance: Yes Were meds taken: Medication compliant. Any med S/E: None reported or observed Mental Status Exam Appearance: Neat and clean, dressed appropriate for unit. Eye contact: Direct Behavior: Cooperative, pleasant Speech: Soft, normal rate/rhythm Mood: Depressed Affect: Constricted Thought process: Linear Thought Content: Family stressors Cognition: Alert and oriented Insight: Poor Judgment: Poor Interventions PRN's used: None Therapeutic interventions: 1:1 to assess for severity of symptoms, therapeutic listening/conversation, orient to unit and reinforce reality, CBT education, medication administration/education/monitoring, Q 15 min safety checks. Restraints/seclusion/emergency medication: N/A Justification of Continued Inpatient Treatment: Pt needs interruption of current crisis with initiation and adjustments of medication in a safe and therapeutic environment to prevent further decompensation and likelihood of inpatient readmission. Addendum: 09/16/18 at 1711 by Kerry Stevens RN Patient isolating in room, very litter interaction on unit. Did request and have a shower late afternoon.
[2018-09-16] MEDS: magnesium hydroxide 30ml (MOM) UD suspension PO PRN (16:28)
[2018-09-16 19:55] VITALS: BP 113/70
[2018-09-16] MEDS: PROGESTERONE PO SCH (20:28)
[2018-09-16] MEDS ORDERED: PROGESTERONE 100 MG PO ONE (20:30)
--- NOTE | 2018-09-16 21:50 | NUR ---
NURSING PROGRESS NOTE: Lexis Juarez Legal hold: VOLUNTARY Client on voluntary status for DTS. Report received from nurse Eddie RN with use of SBAR. Why are they here: Patient initially here on a 5150 hold, now here VOL for DTS after she took an intentional overdose of her prescription medications in an attempt to end her life after experiencing overwhelming anxiety/stress resulting from multiple life stressors. She was stabilized on PCU prior to admission to [place]. Assessment What has happened this shift: Pt was lying in bed just waking up at shift change. States she slept well when she slept but had difficulty falling asleep. She spoke with the provider with her family present and He increased her progesterone to help with her sleep. She rates both her anxiety and depression at a 7/10. Denies current SI. Requested again for her meal to be changed to a regular diet as her esophagus is not painful at this time. Observed on unit walking, interacting with other clients on the unit. No obvious s/s of excessive depression or anxiety. S/I, H/I: Pt denies. A/VH: Pt denies. Sleep: 8.25 ADL's: Independent. Group attendance: Yes Were meds taken: Medication compliant. Any med S/E: None reported or observed Mental Status Exam Appearance: Neat and clean, dressed appropriate for unit. Eye contact: Direct Behavior: Cooperative, pleasant Speech: Soft, normal rate/rhythm Mood: Depressed Affect: Constricted Thought process: Linear Thought Content: Family stressors Cognition: Alert and oriented Insight: Poor Judgment: Poor Interventions PRN's used: None Therapeutic interventions: 1:1 to assess for severity of symptoms, therapeutic listening/conversation, orient to unit and reinforce reality, CBT education, medication administration/education/monitoring, Q 15 min safety checks. Restraints/seclusion/emergency medication: N/A Justification of Continued Inpatient Treatment: Pt needs interruption of current crisis with initiation and adjustments of medication in a safe and therapeutic environment to prevent further decompensation and likelihood of inpatient readmission. Addendum: 07/28/19 at 1711 by Kerry Stevens RN Patient isolating in room, very litter interaction on unit. Did request and have a shower late afternoon.
[2018-09-17] MEDS: duloxetine 30mg CAPSULE.DR PO SCH (08:05)
[2018-09-17] MEDS: pantoprazole 40mg Tablet.DR PO SCH (08:05)
[2018-09-17 08:40] VITALS: BP 122/57
--- NOTE | 2018-09-17 17:21 | NUR ---
NURSING PROGRESS NOTE: Lexis Juarez Legal hold: VOLUNTARY Client on voluntary status for DTS. Report received from nurse Shmuel LVN with use of SBAR. Why are they here: Patient initially here on a 5150 hold, now here VOL for DTS after she took an intentional overdose of her prescription medications in an attempt to end her life after experiencing overwhelming anxiety/stress resulting from multiple life stressors. She was stabilized on PCU prior to admission to [facility]. Assessment What has happened this shift: Patient was asleep at change of shift and up to breakfast. Patient isolates in room and reads. Patient is depressed. When asked about suicidal thoughts patient states she is still having thoughts of suicide off and on. No plan. Patient is not very social. Patient attended both groups today. SI: sometimes HI:denies A/VH: Pt denies. Sleep: 8.25 ADL's: Independent. Group attendance: Yes Were meds taken: Medication compliant. Any med S/E: None reported or observed Mental Status Exam Appearance: Neat and clean, dressed appropriate for unit. Eye contact: Direct Behavior: Cooperative, pleasant Speech: Soft, normal rate/rhythm Mood: Depressed Affect: Constricted Thought process: Linear Thought Content: Family stressors Cognition: Alert and oriented Insight: Poor Judgment: Poor Interventions PRN's used: None Therapeutic interventions: 1:1 to assess for severity of symptoms, therapeutic listening/conversation, orient to unit and reinforce reality, CBT education, medication administration/education/monitoring, Q 15 min safety checks. Restraints/seclusion/emergency medication: N/A Justification of Continued Inpatient Treatment: Pt needs interruption of current crisis with initiation and adjustments of medication in a safe and therapeutic environment to prevent further decompensation and likelihood of inpatient readmission. Addendum: 09/16/18 at 1711 by Kerry Stevens RN Patient isolating in room, very litter interaction on unit. Did request and have a shower late afternoon.
[2018-09-17] MEDS ORDERED: PROGESTERONE PO ONE (20:50)
[2018-09-17 21:00] VITALS: BP 144/93
[2018-09-17] MEDS ORDERED: PROGESTERONE PO SCH ×3 (21:00)
[2018-09-17] MEDS: hydrOXYzine 25 MG tablet PO PRN (23:04)
--- NOTE | 2018-09-17 23:35 | NUR ---
NURSING PROGRESS NOTE: Lexis Juarez Legal hold: VOLUNTARY Client on voluntary status for DTS. Report received from nurse Eddie Jack with use of SBAR. Why are they here: Patient initially here on a 5150 hold, now here VOL for DTS after she took an intentional overdose of her prescription medications in an attempt to end her life after experiencing overwhelming anxiety/stress resulting from multiple life stressors. She was stabilized on PCU prior to admission to [facility]. Assessment What has happened this shift: Patient was walking the [facility] social with staff and peer . Patient isolates in room and reads. Patient is depressed. When asked about suicidal thoughts patient states she is still having thoughts of suicide off and on. No plan. Patient is more social today. Patient attended both groups today. SI: sometimes HI:denies A/VH: Pt denies. Sleep: 8.25 ADL's: Independent. Group attendance: Yes Were meds taken: Medication compliant. Any med S/E: None reported or observed Mental Status Exam Appearance: Neat and clean, dressed appropriate for unit. Eye contact: Direct Behavior: Cooperative, pleasant Speech: Soft, normal rate/rhythm Mood: Depressed Affect: Constricted Thought process: Linear Thought Content: Family stressors Cognition: Alert and oriented Insight: Poor Judgment: Poor Interventions PRN's used: None Therapeutic interventions: 1:1 to assess for severity of symptoms, therapeutic listening/conversation, orient to unit and reinforce reality, CBT education, medication administration/education/monitoring, Q 15 min safety checks. Restraints/seclusion/emergency medication: N/A Justification of Continued Inpatient Treatment: Pt needs interruption of current crisis with initiation and adjustments of medication in a safe and therapeutic environment to prevent further decompensation and likelihood of inpatient readmission. Addendum: 09/16/18 at 1711 by Kerry Stevens RN Patient isolating in room, very litter interaction on unit. Did request and have a shower late afternoon.
[2018-09-18 08:01] VITALS: BP 100/56
[2018-09-18] MEDS: pantoprazole 40mg Tablet.DR PO SCH (08:06)
[2018-09-18] MEDS: duloxetine 30mg CAPSULE.DR PO SCH (08:06)
--- NOTE | 2018-09-18 14:37 | NUR ---
NURSING PROGRESS NOTE: Lexis Juarez Legal hold: VOLUNTARY Client on voluntary status for DTS. Report received from JOYCE Zambrano with use of SBAR. Why are they here: Patient initially here on a 5150 hold, now here VOL for DTS after she took an intentional overdose of her prescription medications in an attempt to end her life after experiencing overwhelming anxiety/stress resulting from multiple life stressors. She was stabilized on PCU prior to admission to [facility]. Assessment What has happened this shift: Patient was asleep at change of shift and up to breakfast. Patient isolates in room and reads. Patient is depressed and states she feels worse today than yesterday. Patient asked if she felt she is getting better, worse or the same, overall. Patient stated she is better overall. When asked about suicidal thoughts patient states she is still having flashes of thoughts of suicide off and on. No plan. Patient is not very social. Patient attended both groups today. Patient takes her medication as prescribed. SI: sometimes HI:denies A/VH: Pt denies. Sleep: a couple of naps and reads in her bed during the day. ADL's: Independent. Group attendance: Yes Were meds taken: Medication compliant. Any med S/E: None reported or observed Mental Status Exam Appearance: Neat and clean, dressed appropriate for unit. Eye contact: Direct Behavior: Cooperative, pleasant Speech: Soft, normal rate/rhythm Mood: Depressed Affect: Constricted Thought process: Linear Thought Content: Family stressors Cognition: Alert and oriented Insight: Poor Judgment: Poor Interventions PRN's used: None Therapeutic interventions: 1:1 to assess for severity of symptoms, therapeutic listening/conversation, orient to unit and reinforce reality, CBT education, medication administration/education/monitoring, Q 15 min safety checks. Restraints/seclusion/emergency medication: N/A Justification of Continued Inpatient Treatment: Pt needs interruption of current crisis with initiation and adjustments of medication in a safe and therapeutic environment to prevent further decompensation and likelihood of inpatient readmission.
[2018-09-18 20:00] VITALS: BP 138/79
[2018-09-18] MEDS: PROGESTERONE PO SCH (20:43)
--- NOTE | 2018-09-18 21:20 | NUR ---
NURSING PROGRESS NOTE: Lexis Juarez Legal hold: VOLUNTARY Client on voluntary status for DTS. Report received from JOYCE Zambrano with use of SBAR. Why are they here: Patient initially here on a 5150 hold, now here VOL for DTS after she took an intentional overdose of her prescription medications in an attempt to end her life after experiencing overwhelming anxiety/stress resulting from multiple life stressors. She was stabilized on PCU prior to admission to [facility]. Assessment What has happened this shift: Patient isolates in room and reads. Patient is depressed but states she feels better today than yesterday. Patient asked if she felt she is getting better, worse or the same, overall. Patient stated she is better overall. When asked about suicidal thoughts patient states she is still having flashes of thoughts of suicide off and on. No plan. Patient is more social than a few days ago. Patient attended both groups today. Patient takes her medication as prescribed. SI: sometimes HI:denies A/VH: Pt denies. Sleep: a couple of naps and reads in her bed during the day. ADL's: Independent. Group attendance: Yes Were meds taken: Medication compliant. Any med S/E: None reported or observed Mental Status Exam Appearance: Neat and clean, dressed appropriate for unit. Eye contact: Direct Behavior: Cooperative, pleasant Speech: Soft, normal rate/rhythm Mood: Depressed Affect: Constricted Thought process: Linear Thought Content: Family stressors Cognition: Alert and oriented Insight: Poor Judgment: Poor Interventions PRN's used: None Therapeutic interventions: 1:1 to assess for severity of symptoms, therapeutic listening/conversation, orient to unit and reinforce reality, CBT education, medication administration/education/monitoring, Q 15 min safety checks. Restraints/seclusion/emergency medication: N/A Justification of Continued Inpatient Treatment: Pt needs interruption of current crisis with initiation and adjustments of medication in a safe and therapeutic environment to prevent further decompensation and likelihood of inpatient readmission.
[2018-09-19] MEDS: hydrOXYzine 25 MG tablet PO PRN (00:15)
[2018-09-19 07:37] VITALS: BP 110/66
[2018-09-19] MEDS: pantoprazole 40mg Tablet.DR PO SCH (07:39)
[2018-09-19] MEDS: duloxetine 30mg CAPSULE.DR PO SCH (07:39)
--- NOTE | 2018-09-19 16:20 | NUR ---
NURSING PROGRESS NOTE: Lexis Beebe "Ann" Legal hold: VOLUNTARY Client on voluntary status for DTS. Report received from nurse Suzanne RN with use of SBAR. Why are they here: Patient initially here on a 5150 hold, now here VOL for DTS after she took an intentional overdose of her prescription medications in an attempt to end her life after experiencing overwhelming anxiety/stress resulting from multiple life stressors. She was stabilized on PCU prior to admission to [facility]. Assessment What has happened this shift: Patient sleeping at change of shift. Patient isolates in room and reads her Bible most of the day. Patient reports feeling depressed today. When questioned about her discharge pt becomes becomes guarded and reports she has not thought about it and has no idea what will happen. Patients main complaint is poor sleep. She reports poor sleep last night, states she woke up and laid in bed most of the night. She reports she is eager to get medications to help her sleep. Reports she was taking 3 different medications to assist with her sleep prior to her admission to the unit. RN educated her on blue UV light on devices and encouraged her to try non-medicinal techniques such as hot Chamomile tea at bedtime. She reports feeling depressed but denies any plan or intention to do so. No AH VH. Patient takes her medication as prescribed. She reports having a BM this morning. SI: fleeting thoughts, no intent or plan HI:denies A/VH: Pt denies. Sleep: 6.25 hr NOC, pt reports poor sleep 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: Yes Were meds taken: Medication compliant Any med S/E: None reported or observed Mental Status Exam Appearance: Neat and clean, dressed appropriate for unit Eye contact: Direct Behavior: Cooperative, pleasant Speech: Soft, normal rate/rhythm Mood: Depressed Affect: Congruent to mood Thought process: Focused on sleep Thought Content: Sleep Cognition: Alert and oriented Insight: Poor Judgment: Poor Interventions PRN's used: None Therapeutic interventions: 1:1 to assess for severity of symptoms, therapeutic listening/conversation, orient to unit and reinforce reality, CBT education, medication administration/education/monitoring, Q 15 min safety checks. Restraints/seclusion/emergency medication: N/A Justification of Continued Inpatient Treatment: Pt needs interruption of current crisis with initiation and adjustments of medication in a safe and therapeutic environment to prevent further decompensation and likelihood of inpatient readmission.
[2018-09-19 19:35] VITALS: BP 113/62
[2018-09-19] MEDS: PROGESTERONE PO SCH (20:40)
--- NOTE | 2018-09-19 21:34 | NUR ---
NURSING PROGRESS NOTE: Legal hold: VOLUNTARY Client on voluntary status for DTS. Report received from nurse Mcknight RN with use of SBAR. Why are they here: Patient initially here on a 5150 hold, now here VOL for DTS after she took an intentional overdose of her prescription medications in an attempt to end her life after experiencing overwhelming anxiety/stress resulting from multiple life stressors. She was stabilized on PCU prior to admission to [facility]. Assessment What has happened this shift: Pt was meeting with Dr. Vann at change of shift. Pt denies s/i, denies plan. Pt has some depression, but is hopeful she will sleep better tonight. pt reports appetite has been good. Pt states she attended groups today, and they discussed coping skills she plans to use. Pt c/o chronic lower and middle back pain. She states she is comfortable when laying in bed at night resting but her back pain bothers her mostly while she is awake moving about and lidocaine patches have been helpful in the past. Lidocaine patch ordered. SI: denies HI:denies A/VH: Pt denies. Sleep: 6.25 hr NOC, pt reports poor sleep 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: Yes Were meds taken: Medication compliant Any med S/E: None reported or observed Mental Status Exam Appearance: Neat and clean, dressed appropriate for unit Eye contact: Direct Behavior: Cooperative, pleasant Speech: Soft, normal rate/rhythm Mood: Depressed Affect: Congruent to mood Thought process: Focused on sleep Thought Content: Sleep Cognition: Alert and oriented Insight: Poor Judgment: Poor Interventions PRN's used: None Therapeutic interventions: 1:1 to assess for severity of symptoms, therapeutic listening/conversation, orient to unit and reinforce reality, CBT education, medication administration/education/monitoring, Q 15 min safety checks. Restraints/seclusion/emergency medication: N/A Justification of Continued Inpatient Treatment: Pt needs interruption of current crisis with initiation and adjustments of medication in a safe and therapeutic environment to prevent further decompensation and likelihood of inpatient readmission.
[2018-09-19] MEDS: LORazepam 1 MG tablet PO PRN (23:01)
[2018-09-19] MEDS: OLANZapine 2.5MG tablet PO PRN (23:01)
[2018-09-20 07:39] VITALS: BP 103/75
[2018-09-20] MEDS: LIDOcaine 5% patch TP SCH (07:51)
[2018-09-20] MEDS: pantoprazole 40mg Tablet.DR PO SCH (07:51)
[2018-09-20] MEDS: duloxetine 30mg CAPSULE.DR PO SCH (07:51)
--- NOTE | 2018-09-20 16:39 | NUR ---
NURSING PROGRESS NOTE: Lexis Juarez Legal hold: VOL Client on voluntary status for DTS Report received from nurse CHENTE Payne with use of SBAR Why are they here: Patient initially here on a 5150 hold, now here VOL for DTS after she took an intentional overdose of her prescription medications in an attempt to end her life after experiencing overwhelming anxiety/stress resulting from multiple life stressors. She was stabilized on PCU prior to admission to [facility]. Assessment What has happened this shift: Patient sleeping at change of shift. Patient reports feeling "OK" today. Reports she achieved better sleep last night and was happy about that. Reports she was taking 3 different medications to assist with her sleep prior to her admission to the unit. RN educated her on healthy sleep hygiene techniques and encouraged her to try non-medicinal techniques at bedtime. She reports feeling depressed but denies any plan or intention to harm herself or others. No AH VH. Patient takes her medication as prescribed. She reports having a meeting with her and son yesterday which went well. Denies any needs or complaints. No SEs observed or reported. SI: fleeting thoughts, no intent or plan HI:denies A/VH: Pt denies. Sleep: 8.25 hr NOC, reports better sleep, naps during the day 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: Yes Were meds taken: Medication compliant Any med S/E: None reported or observed Mental Status Exam Appearance: Neat and clean, dressed appropriate for unit Eye contact: Direct Behavior: Cooperative, pleasant Speech: Soft, normal rate/rhythm Mood: OK, still depressed Affect: Congruent to mood Thought process: goal oriented Thought Content: Focused on sleep & discharge Cognition: Alert and oriented Insight: Poor Judgment: Poor Interventions PRN's used: None Therapeutic interventions: 1:1 to assess for severity of symptoms, therapeutic listening/conversation, orient to unit and reinforce reality, CBT education, medication administration/education/monitoring, Q 15 min safety checks. Restraints/seclusion/emergency medication: N/A Justification of Continued Inpatient Treatment: Pt needs interruption of current crisis with initiation and adjustments of medication in a safe and therapeutic environment to prevent further decompensation and likelihood of inpatient readmission.
[2018-09-20] MEDS: PROGESTERONE PO SCH (20:28)
[2018-09-20 20:41] VITALS: BP 109/73
[2018-09-20] MEDS: OLANZapine 2.5MG tablet PO PRN (21:39)
[2018-09-20] MEDS: LORazepam 1 MG tablet PO PRN (21:40)
--- NOTE | 2018-09-20 22:06 | NUR ---
NURSING PROGRESS NOTE: Legal hold: VOLUNTARY Client on voluntary status for DTS. Report received from nurse Ingris RN with use of SBAR. Why are they here: Patient initially here on a 5150 hold, now here VOL for DTS after she took an intentional overdose of her prescription medications in an attempt to end her life after experiencing overwhelming anxiety/stress resulting from multiple life stressors. She was stabilized on PCU prior to admission to [facility]. Assessment What has happened this shift: Patient is up walking the unit at change of shift. She is pleasant, cooperative and presents with a smile. She brings herself to the day room shortly after change of shift to await her visitor this evening. She is cooperative for a 1:1 assessment at her bedside after she is done visiting. She denies SI/HI, AH/VH. She reports she still has depression but "it is getting better" she reports it is a 4/10. She take her evening medications as prescribed and asks if she can wait an hour after them to see if she can fall asleep on her own before taking her PRN's. About an hour later pateint is still awake and request her PRN Zyprexa and Ativan to help her relax and get sleep. Her lidocaine patch is removed and disposed of appropriately. SI: Denies HI: Denies A/VH: Denies Sleep: See sleep assessment 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: Yes Were meds taken: Medication compliant Any med S/E: None reported or observed Mental Status Exam Appearance: Neat and clean, dressed appropriate for unit Eye contact: Direct Behavior: Cooperative, pleasant Speech: Soft, normal rate/rhythm Mood: Depressed Affect: Congruent to mood Thought process: Focused on sleep Thought Content: Sleep Cognition: Alert and oriented Insight: Poor Judgment: Poor Interventions PRN's used: None Therapeutic interventions: 1:1 to assess for severity of symptoms, therapeutic listening/conversation, orient to unit and reinforce reality, CBT education, medication administration/education/monitoring, Q 15 min safety checks. Restraints/seclusion/emergency medication: N/A Justification of Continued Inpatient Treatment: Pt needs interruption of current crisis with initiation and adjustments of medication in a safe and therapeutic environment to prevent further decompensation and likelihood of inpatient readmission.
[2018-09-21 08:00] VITALS: BP 116/71
[2018-09-21] MEDS: pantoprazole 40mg Tablet.DR PO SCH (08:19)
[2018-09-21] MEDS: duloxetine 30mg CAPSULE.DR PO SCH (08:19)
[2018-09-21] MEDS: LIDOcaine 5% patch TP SCH (08:20)
[2018-09-21] MEDS: magnesium hydroxide 30ml (MOM) UD suspension PO PRN (08:51)
--- NOTE | 2018-09-21 10:39 | NUR ---
Reassessment: Patient's diet has been advanced to regular and pt continues with 75-100% PO intake meeting nutrient needs. LBM 09/19. Pt with MoM PRN given today. Wt stable with admit. No nutrition diagnosis at this time. Will continue to follow. Recommendations: 1) Continue regular diet 2) Bowel care PRN 3) Weekly wt Addendum: 09/21/18 at [address] Amended: Links added.
--- NOTE | 2018-09-21 15:42 | NUR ---
NURSING PROGRESS NOTE: Legal hold: VOLUNTARY Client on voluntary status for DTS. Report received from nurse Ingris RN with use of SBAR. Why are they here: Patient initially here on a 5150 hold, now here VOL for DTS after she took an intentional overdose of her prescription medications in an attempt to end her life after experiencing overwhelming anxiety/stress resulting from multiple life stressors. She was stabilized on PCU prior to admission to [facility]. Assessment The patient was asleep at change of shift. Up to breakfast and medication compliant. reports sleeping "better" last night but is now still sleepy and will go back to sleep. Reports depression "getting better" and she expects to go home soon. Attends all groups and makes several phone calls to home. Denies suicidal thoughts. Constricted affect. SI: Denies HI: Denies A/VH: Denies Sleep: Naps 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: Yes Were meds taken: Medication compliant Any med S/E: None reported or observed Mental Status Exam Appearance: Neat and clean, dressed appropriate for unit Eye contact: Direct Behavior: Cooperative, pleasant Speech: Soft, normal rate/rhythm Mood: Depressed Affect: Constricted Thought process: Focused on sleep Thought Content: Sleep Cognition: Alert and oriented Insight: Poor Judgment: Poor Interventions PRN's used: None Therapeutic interventions: 1:1 to assess for severity of symptoms, therapeutic listening/conversation, orient to unit and reinforce reality, CBT education, medication administration/education/monitoring, Q 15 min safety checks. Restraints/seclusion/emergency medication: N/A Justification of Continued Inpatient Treatment: Pt needs interruption of current crisis with initiation and adjustments of medication in a safe and therapeutic environment to prevent further decompensation and likelihood of inpatient readmission.
[2018-09-21 20:00] VITALS: BP 114/75
[2018-09-21] MEDS: PROGESTERONE PO SCH (21:21)
[2018-09-21] MEDS: OLANZapine 2.5MG tablet PO PRN (23:36)
[2018-09-21] MEDS: LORazepam 1 MG tablet PO PRN (23:37)
--- NOTE | 2018-09-22 | NUR ---
NURSING PROGRESS NOTE: Legal hold: VOLUNTARY Client on voluntary status for DTS. Report received from nurse Ingris RN with use of SBAR. Why are they here: Patient initially here on a 5150 hold, now here VOL for DTS after she took an intentional overdose of her prescription medications in an attempt to end her life after experiencing overwhelming anxiety/stress resulting from multiple life stressors. She was stabilized on PCU prior to admission to [facility]. Assessment What has happened this shift: Patient sitting on her bed reading at shift change. Pt is pleasant presents with a smile, but has a constricted affect. Pt is up for visit with . Pt appears to be apprehensive about discharge, feeling "just okay" about it. Pt reports she is "feeling a little better, but again very constricted affect. Reports depression a 4-5/10. Pt states her BM have been small and was given MOM earlier in the day. Pt has no other GI complaints. Pt retires to bed around 2130, but awakens at 2330 and requests her PRN Zyprexa and Ativan to help her relax and sleep. Pt's Lidocaine patch is removed and discarded appropriately. SI, HI: Pt denies. None observed. A/VH: Pt denies. None observed. Sleep: See sleep assessment. Pt awakens - Zyprexa 2.5 mg and Ativan 1mg administered. 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: Yes Were meds taken: Medication compliant Any med S/E: None reported or observed Mental Status Exam Appearance: Neat and clean, dressed appropriate for unit Eye contact: Direct Behavior: Cooperative, pleasant Speech: Soft, normal rate/rhythm Mood: Depressed Affect: Constricted with brightening Thought process: Linear Thought Content: Discharge, feeling a little apprehensive Cognition: Alert and oriented Insight: Fair Judgment: Poor Interventions PRN's used: Zyprexa 2.5 mg, Ativan 1mg Therapeutic interventions: 1:1 to assess for severity of symptoms, therapeutic listening/conversation, orient to unit and reinforce reality, CBT education, medication administration/education/monitoring, Q 15 min safety checks. Restraints/seclusion/emergency medication: N/A Justification of Continued Inpatient Treatment: Pt needs interruption of current crisis with initiation and adjustments of medication in a safe and therapeutic environment to prevent further decompensation and likelihood of inpatient readmission.
[2018-09-22 07:38] VITALS: BP 109/62
[2018-09-22] MEDS: duloxetine 30mg CAPSULE.DR PO SCH (08:03)
[2018-09-22] MEDS: pantoprazole 40mg Tablet.DR PO SCH (08:03)
[2018-09-22] MEDS: LIDOcaine 5% patch TP SCH (08:03)
[2018-09-22] MEDS ORDERED: ibuprofen tablet 400 MG TABLET PO ONE (12:10)
--- NOTE | 2018-09-22 15:51 | NUR ---
NURSING PROGRESS NOTE: Legal hold: VOLUNTARY Client on voluntary status for DTS. Report received from nurse CHENTE Enriquez with use of SBAR. Why are they here: Patient initially here on a 5150 hold, now here VOL for DTS after she took an intentional overdose of her prescription medications in an attempt to end her life after experiencing overwhelming anxiety/stress resulting from multiple life stressors. She was stabilized on PCU prior to admission to [facility]. Assessment The patient was asleep at change of shift and up for breakfast with peers. she reported sleeping well last night but has a "hangover" from the meds and feels still very sleepy this morning after breakfast. Reports she is feeling a bit anxious about going home knowing her and son do not want her taking medications. This nurse had a kimi discussion with the patient about taking medications and side effects, making her own decisions, med taking vs. readmission vs. completed suicide. C/O low back pain "I was drying off in the shower and hurt my back", given Tylenol, Motrin and ice pack. Depressed mood constricted affect. SI: Denies HI: Denies A/VH: Denies Sleep: Naps 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: Yes Were meds taken: Medication compliant Any med S/E: None reported or observed Mental Status Exam Appearance: Neat and clean, dressed appropriate for unit Eye contact: Direct Behavior: Cooperative, pleasant Speech: Soft, normal rate/rhythm Mood: Depressed Affect: Constricted Thought process: Anxious about going home Thought Content: discharge Cognition: Alert and oriented Insight: Poor Judgment: Poor Interventions PRN's used: None Therapeutic interventions: 1:1 to assess for severity of symptoms, therapeutic listening/conversation, orient to unit and reinforce reality, CBT education, medication administration/education/monitoring, Q 15 min safety checks. Restraints/seclusion/emergency medication: N/A Justification of Continued Inpatient Treatment: Pt needs interruption of current crisis with initiation and adjustments of medication in a safe and therapeutic environment to prevent further decompensation and likelihood of inpatient readmission.
[2018-09-22] MEDS: magnesium hydroxide 30ml (MOM) UD suspension PO PRN (16:06)
[2018-09-22 20:00] VITALS: BP 112/61
[2018-09-22] MEDS: PROGESTERONE PO SCH (21:03)
[2018-09-22] MEDS: ibuprofen tablet 400 MG TABLET PO PRN (21:40)
[2018-09-22] MEDS: LORazepam 1 MG tablet PO PRN (23:02)
[2018-09-22] MEDS: OLANZapine 2.5MG tablet PO PRN (23:02)
--- NOTE | 2018-09-23 02:01 | NUR ---
NURSING PROGRESS NOTE: Legal hold: VOLUNTARY Client on voluntary status for DTS. Report received from nurse Ingris RN with use of SBAR. Why are they here: Patient initially here on a 5150 hold, now here VOL for DTS after she took an intentional overdose of her prescription medications in an attempt to end her life after experiencing overwhelming anxiety/stress resulting from multiple life stressors. She was stabilized on PCU prior to admission to [facility]. Assessment What has happened this shift: Pt is room reading at shift change. Pt is pleasant with a constricted affect. Pt states she is apprehensive about going home because "what I have to face at home." Pt understands the importance of compliance with her medications and feels she is able to maintain this even though her and son would like to see her off her meds. Pt c/o of back pain 06/29. Administered Motrin 400mg with effect. Lidocaine patch removed and disposed of appropriately. SI, HI: Pt denies. None observed. A/VH: Pt denies. None observed. Sleep: See sleep assessment. Pt awakens - Zyprexa 2.5 mg and Ativan 1mg administered. 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, no group Were meds taken: Medication compliant Any med S/E: None reported or observed Mental Status Exam Appearance: Neat and clean, dressed appropriate for unit Eye contact: Direct Behavior: Cooperative, pleasant Speech: Soft, normal rate/rhythm Mood: Depressed, but "feeling better" Affect: Constricted with brightening Thought process: Linear Thought Content: Discharge, feeling a little apprehensive Cognition: Alert and oriented Insight: Fair Judgment: Poor Interventions PRN's used: Zyprexa 2.5 mg, Ativan 1mg, Motrin 400mg x1 Therapeutic interventions: 1:1 to assess for severity of symptoms, therapeutic listening/conversation, orient to unit and reinforce reality, CBT education, medication administration/education/monitoring, Q 15 min safety checks. Restraints/seclusion/emergency medication: N/A Justification of Continued Inpatient Treatment: Pt needs interruption of current crisis with initiation and adjustments of medication in a safe and therapeutic environment to prevent further decompensation and likelihood of inpatient readmission.
[2018-09-23 07:37] VITALS: BP 105/62
[2018-09-23] MEDS: pantoprazole 40mg Tablet.DR PO SCH (08:19)
[2018-09-23] MEDS: duloxetine 30mg CAPSULE.DR PO SCH (08:19)
[2018-09-23] MEDS: LIDOcaine 5% patch TP SCH (08:20)
[2018-09-23] MEDS: ibuprofen tablet 400 MG TABLET PO PRN (08:31)
[2018-09-23] MEDS ORDERED: LIDO700A47 TP (13:53)
[2018-09-23] MEDS ORDERED: OLAN2.5T3 PO (13:53)
[2018-09-23] MEDS ORDERED: Miscellaneous PO (13:53)
[2018-09-23] MEDS ORDERED: DULO30CA52 PO (13:53)
[2018-09-23] MEDS ORDERED: LORA1TAB PO (13:53)
== END 2018-09-23 16:16 | disposition home or self-care (01) | DRG 885 ==
LOC: ADULT MH 10:34
PROVIDERS: ADMIT Psychiatry & Neurology Psychiatry; ATTEND Psychiatry & Neurology Psychiatry
DX: F33.3 Major depressive disorder, recurrent, severe with psychotic symptoms (principal); F41.0 Panic disorder [episodic paroxysmal anxiety]; G47.00 Insomnia, unspecified; I10 Essential (primary) hypertension; G89.29 Other chronic pain; M54.5 Low back pain; K20.9 Esophagitis, unspecified; E78.00 Pure hypercholesterolemia, unspecified; T43.212A Poisoning by selective serotonin and norepinephrine reuptake inhibitors, intentional self-harm, initial encounter; Z88.1 Allergy status to other antibiotic agents; Y92.89 Other specified places as the place of occurrence of the external cause; Z79.899 Other long term (current) drug therapy
CPT/HCPCS: 36415; 80061; 83036; 84443; 87081; Z7610

== ENCOUNTER 2020-08-24 17:38 | Emergency (ER) | payer MEDICARE ==
[~2020-08-24] VITALS: Ht 154.9 cm; Wt 58.2 kg
[~2020-08-24 17:38] MED LIST changes: +DULO30CA52 PO; +LIDO700A47 TP; +LORA1TAB PO; -MAG355OR18 PO; +Miscellaneous PO; +OLAN2.5T3 PO; -PANT-47 PO
[2020-08-24] MEDS ORDERED: ibuprofen tablet 400 MG TABLET PO ONE (18:35)
[2020-08-24] MEDS ORDERED: NO HOME MEDS (18:40)
--- NOTE | 2020-08-24 18:41 | NUR ---
The patient is a 70 year old who was brought to the ER her for a mental health evaluation after she drove off a lilibeth in a suicide attempt up in [facility]. Per the the automatic car controls sensed the downward motion of the car and the break system autiomatically locked. The patient has a history of prior suicide attempts and hospitalizations. 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 She denies auditory or visual hallucinations but feels an evil presense. She reports a feeling of panic and fear and evilness for several weeks. She has been taken off of her psychiatric medications after she was doing well. She currently sees Dr. Kelly currently. She has chronic back pain. Her reports that she had planned the suicide attempt for several days and he does not feel comfortable having her at home. She is currently on a 1799 for being a danger to herself. She is cooperative with procedures.
[2020-08-24 18:57] LABS: BASOPHILS % (AUTO) 0.4 % (0-1); EOSINOPHILS # (AUTO) 0.1 X10'3 (0-0.9); EOSINOPHILS % (AUTO) 0.7 % (0-6); HEMATOCRIT 40.5 % (35.0-45.0); HEMOGLOBIN 13.9 g/dl (12.0-16.0); LYMPHOCYTES # (AUTO) 1.5 X10'3 (1.1-4.8); LYMPHOCYTES % (AUTO) 17.7 % (21-51); MEAN CORPUSCULAR HEMOGLOBIN 30.9 PG (27.0-31.0); MEAN CORPUSCULAR HGB CONC 34.4 g/dL (33.0-36.5); MEAN CORPUSCULAR VOLUME 89.6 FL (78-98); MEAN PLATELET VOLUME 7.6 FL (7.4-10.4); MONOCYTES # (AUTO) 0.8 X10'3 (0-0.9); MONOCYTES % (AUTO) 8.8 % (2-12); NEUTROPHILS # (AUTO) 6.2 X10'3 (1.8-7.7); NEUTROPHILS % (AUTO) 72.4 % (42-75); PLATELET COUNT 305 X10'3 (140-440); RED BLOOD COUNT 4.52 X10'6 (4.20-5.60); RED CELL DISTRIBUTION WIDTH 14.5 % (11.5-14.5); WHITE BLOOD COUNT 8.6 X10'3 (4.5-11.0)
[2020-08-24 19:11] LABS: ALANINE AMINOTRANSFERASE 32 U/L (12-78); ALBUMIN 3.3 G/DL (3.4-5.0); ALKALINE PHOSPHATASE 79 IU/L (46-116); ANION GAP 9 (8-16); ASPARTATE AMINO TRANSFERASE 23 U/L (10-37); BILIRUBIN,TOTAL 0.8 MG/DL (0.1-1.0); BLOOD UREA NITROGEN 12 MG/DL (7-18); BUN/CREATININE RATIO 14.3 (6.6-38.0); CALCIUM 8.2 MG/DL (8.5-10.1); CHLORIDE 98 MMOL/L (99-107); CREATININE 0.84 MG/DL (0.40-0.90); GLUCOSE 119 MG/DL (70-104); POTASSIUM 3.3 MMOL/L (3.5-5.1); SODIUM 133 MMOL/L (135-145); TOTAL CARBON DIOXIDE 26.4 MMOL/L (24-32); TOTAL PROTEIN 6.7 G/DL (6.4-8.2); eGFR 67 ML/MIN
[2020-08-24 19:18] LABS: CLARITY,URINE CLEAR (Clear); COLOR,URINE YELLOW (Yellow); GLUCOSE, URINE NEGATIVE (Neg); KETONES,URINE NEGATIVE (Neg); LEUKOCYTE ESTERASE ,URINE SMALL (Neg); NITRITES, URINE NEGATIVE (Neg); OCCULT BLOOD,URINE TRACE-INTACT (Neg); PH,URINE 6.5 (4.8-8.0); PROTEIN,URINE NEGATIVE (Neg); URINE AMPHETAMINE SCREEN NEGATIVE (Neg); URINE BARBITUATE SCREEN NEGATIVE (Neg); URINE BENZODIAZEPINES SCREEN NEGATIVE (Neg); URINE CANNABINOID SCREEN NEGATIVE (Neg); URINE COCAINE SCREEN NEGATIVE (Neg); URINE METHADONE SCREEN NEGATIVE (Neg); URINE OPIATE SCREEN NEGATIVE (Neg); URINE PHENCYCLIDINE SCREEN NEGATIVE (Neg); UROBILINOGEN,URINE 0.2 E.U/dL (0.2-1.0)
[2020-08-24 19:21] LABS: ETHANOL < 0.010 GM/DL (0.0-0.010)
[2020-08-24 20:28] LABS: UA COLLECTION TYPE CLN CATCH MIDSTREAM
[2020-08-24 20:29] LABS: BACTERIA,URINE NONE SEEN /HPF (Neg); SQUAMOUS EPITHELIAL CELL,UR FEW /LPF (FEW); WBC,URINE 0-4 /HPF (0-4)
--- NOTE | 2020-08-24 20:36 | NUR ---
Packet sent to [facility]
[2020-08-24] MEDS ORDERED: OLANZAPINE 5 MG TABLET PO ONE (21:00)
[2020-08-24] MEDS ORDERED: olanzapine 10mg tablet PO ONE (21:00)
--- NOTE | 2020-08-24 21:55 | NUR ---
The patient appears to be sleeping
--- NOTE | 2020-08-24 23:14 | NUR ---
The patient appears to be sleeping
--- NOTE | 2020-08-24 23:49 | NUR ---
The patient appears to be sleeping
--- NOTE | 2020-08-25 01:16 | NUR ---
The patient appears to be sleeping
--- NOTE | 2020-08-25 02:42 | NUR ---
The patient appears to be sleeping
--- NOTE | 2020-08-25 04:44 | NUR ---
The patient appears to be sleeping
--- NOTE | 2020-08-25 06:30 | NUR ---
Pt sleeping comfortably on left side, respirations even and unlabored.
--- NOTE | 2020-08-25 07:20 | NUR ---
called checking on status of . Cell number [phone].
--- NOTE | 2020-08-25 08:45 | NUR ---
[facility] at bedside.
--- NOTE | 2020-08-25 10:07 | NUR ---
Patient is talking calmly on the phone.
--- NOTE | 2020-08-25 11:05 | NUR ---
Pt lying in bed feeling "depressed." Pt states "I have given my salvation away and I can't get it back." "I live with this." "I've partnered with this demon throughout the years, I can't go back to God." Pt denied being on any type of medical or psychiatric medications. Pt stated "I have just been living a normal life until now." Pt voices "I shouldn't be here anymore." Pt denies A/VH. Pt states she is having a difficult time having a bowel movement. Will look into an order for MOM. Pt has been calm and cooperative; tearful at times.
[2020-08-25] MEDS ORDERED: magnesium hydroxide 30ml (MOM) UD suspension PO ONE (11:40)
--- NOTE | 2020-08-25 13:05 | NUR ---
Patient at bedside eating lunch. No distress noted.
--- NOTE | 2020-08-25 15:11 | NUR ---
Pt's and son at bedside.
[2020-08-25 15:42] VITALS: BP 130/89
--- NOTE | 2020-08-25 15:46 | NUR ---
DISCHARGE NOTE: Patient was discharged from unit at 1543. Pt was being admitted to [facility] and was escorted by Trini TRAMMELL. Pt is A&O, calm and cooperative. took pt's purse and valuables home with him.
== END 2020-08-25 15:47 ==
LOC: ER 17:39
DX: R45.851 Suicidal ideations (principal); Z20.822 Contact with and (suspected) exposure to COVID-19; M54.5 Low back pain; R44.0 Auditory hallucinations; F32.9 Major depressive disorder, single episode, unspecified; Z88.1 Allergy status to other antibiotic agents
CPT/HCPCS: 36415; 80053; 80305; 80320; 81001; 84443; 85025; 87426; 99285

== ENCOUNTER 2023-04-13 16:33 | Inpatient (IN) | payer MEDICARE ==
[~2023-04-13] VITALS: Ht 152.4 cm; Wt 50.3 kg
[~2023-04-13 16:33] MED LIST changes: +BUSP5TAB26 PO; +DOCU100C40 PO; -DULO30CA52 PO; +DULO60CA65 PO; +LORA-268 PO; -LORA1TAB PO; -Miscellaneous PO; -OLAN2.5T3 PO; +OLAN5TAB75 PO; +PROG100C11 PO; +polyethylene glycol 3350 pkt PO
[2023-04-13 18:28] LABS: ALBUMIN 3.8 G/DL (3.4-5.0); ANION GAP 14 (8-16); BLOOD UREA NITROGEN 12 MG/DL (7-18); BUN/CREATININE RATIO 21.4 (10.0-20.0); CALCIUM 8.1 MG/DL (8.5-10.1); CHLORIDE 95 MMOL/L (99-107); CREATININE 0.56 MG/DL (0.40-0.90); ETHANOL < 10 MG/DL (<10); GLUCOSE 102 MG/DL (70-104); POTASSIUM 3.9 MMOL/L (3.5-5.1); SODIUM 131 MMOL/L (135-145); TOTAL CARBON DIOXIDE 22.5 MMOL/L (24-32); eCRCL 63 ML/MIN; eGFR > 90 ML/MIN
[2023-04-13 18:36] LABS: COVID19 ID NOW NEGATIVE (Neg)
[2023-04-13 18:49] LABS: MEAN CORPUSCULAR HGB CONC 34.1 g/dL (33.0-36.5)
[2023-04-13 18:51] LABS: BASOPHILS % (AUTO) 0.3 % (0-1); EOSINOPHILS % (AUTO) 0.3 % (0-6); HEMATOCRIT 45.6 % (35.0-45.0); HEMOGLOBIN 15.5 g/dl (12.0-16.0); LYMPHOCYTES # (AUTO) 1.6 X10'3 (1.1-4.8); LYMPHOCYTES % (AUTO) 15.8 % (21-51); MEAN CORPUSCULAR HEMOGLOBIN 32.2 PG (27.0-31.0); MEAN CORPUSCULAR VOLUME 94.6 FL (78-98); MEAN PLATELET VOLUME 7.9 FL (7.4-10.4); MONOCYTES # (AUTO) 0.6 X10'3 (0-0.9); MONOCYTES % (AUTO) 5.8 % (2-12); NEUTROPHILS # (AUTO) 7.9 X10'3 (1.8-7.7); NEUTROPHILS % (AUTO) 77.8 % (42-75); PLATELET COUNT 288 X10'3 (140-440); RED BLOOD COUNT 4.82 X10'6 (4.20-5.60); RED CELL DISTRIBUTION WIDTH 13.5 % (11.5-14.5); WHITE BLOOD COUNT 10.2 X10'3 (4.5-11.0)
[2023-04-13] MEDS ORDERED: NO HOME MEDS (19:26)
[2023-04-13 19:39] LABS: BILIRUBIN,URINE NEGATIVE (Neg); CLARITY,URINE CLEAR (Clear); COLOR,URINE STRAW (Yellow); GLUCOSE, URINE NEGATIVE (Neg); KETONES,URINE 15 mg/dl (Neg); LEUKOCYTE ESTERASE ,URINE NEGATIVE (Neg); NITRITES, URINE NEGATIVE (Neg); OCCULT BLOOD,URINE TRACE-INTACT (Neg); PH,URINE 6.5 (4.8-8.0); PROTEIN,URINE NEGATIVE (Neg); UROBILINOGEN,URINE 0.2 E.U/dL (0.2-1.0)
[2023-04-13 19:52] LABS: URINE AMPHETAMINE SCREEN NEGATIVE (Neg); URINE BARBITUATE SCREEN NEGATIVE (Neg); URINE BENZODIAZEPINES SCREEN NEGATIVE (Neg); URINE CANNABINOID SCREEN NEGATIVE (Neg); URINE COCAINE SCREEN NEGATIVE (Neg); URINE METHADONE SCREEN NEGATIVE (Neg); URINE OPIATE SCREEN NEGATIVE (Neg); URINE PHENCYCLIDINE SCREEN NEGATIVE (Neg)
[2023-04-13 19:53] LABS: UA COLLECTION TYPE CLN CATCH MIDSTREAM
[2023-04-13 19:57] LABS: BACTERIA,URINE NONE SEEN /HPF (Neg); MUCUS STRANDS NONE SEEN /LPF (Neg); RBC,URINE 0-2 /HPF (0-2); SQUAMOUS EPITHELIAL CELL,UR NONE SEEN /LPF (FEW); WBC,URINE 0-4 /HPF (0-4)
[2023-04-13] MEDS: haloperidol lactate 5mg/ml inj IM ONE (21:19)
[2023-04-13] MEDS: diphenhydrAMINE 50 mg/ml inj IM ONE (21:19)
[2023-04-13] MEDS: LORazepam 2 mg/ml vial IM ONE (21:19)
[2023-04-14] MEDS ORDERED: loperamide 2mg capsule PO PRN (14:45)
[2023-04-14] MEDS ORDERED: acetaminophen 325mg tablet PO PRN (14:45)
[2023-04-14] MEDS ORDERED: mag hydrox/Alum hydrox/simeth 30ml oral suspension PO PRN (14:45)
[2023-04-14] MEDS ORDERED: magnesium hydroxide 30ml (MOM) UD suspension PO PRN (14:45)
[2023-04-14 15:05] VITALS: BP 124/85; PULSE 114; RESP 12; TEMP 98.5; O2SAT 97
[2023-04-14 15:47] VITALS: RESP 12; O2SAT 97
[2023-04-14 19:00] VITALS: RESP 14; O2SAT 99
[2023-04-14 20:00] VITALS: BP 133/69; PULSE 100; RESP 14; TEMP 98; O2SAT 99
[2023-04-15 07:00] VITALS: RESP 16; O2SAT 97
[2023-04-15 08:00] VITALS: BP 126/69; PULSE 83; RESP 16; TEMP 97.2; O2SAT 97
[2023-04-15 08:16] LABS: ALANINE AMINOTRANSFERASE 28 U/L (12-78); ALBUMIN 3.1 G/DL (3.4-5.0); ALKALINE PHOSPHATASE 68 IU/L (46-116); ANION GAP 9 (8-16); ASPARTATE AMINO TRANSFERASE 17 U/L (10-37); BILIRUBIN,TOTAL 0.7 MG/DL (0.1-1.0); BLOOD UREA NITROGEN 13 MG/DL (7-18); BUN/CREATININE RATIO 21.7 (10.0-20.0); CALCIUM 8.3 MG/DL (8.5-10.1); CHLORIDE 103 MMOL/L (99-107); CHOLESTEROL 269 MG/DL (0-200); GLUCOSE 113 MG/DL (70-104); HDL CHOLESTEROL 89 MG/DL (35-60); LDL CHOLESTEROL 161 MG/DL (50-100); POTASSIUM 4.1 MMOL/L (3.5-5.1); SODIUM 137 MMOL/L (135-145); THYROID STIMULATING HORMONE 5.42 ulU/ml (0.34-4.50); TOTAL CARBON DIOXIDE 24.7 MMOL/L (24-32); TOTAL PROTEIN 6.1 G/DL (6.4-8.2); TRIGLYCERIDES 55 MG/DL (20-135); eCRCL 59 ML/MIN; eGFR > 90 ML/MIN
[2023-04-15 08:56] LABS: HEMOGLOBIN A1C 5.8 % (4.5-6.2)
[2023-04-15] MEDS: polyvinyl alcohol ophthalmic drops 15ml bottle EACHEYE PRN (17:56)
[2023-04-15 19:33] VITALS: RESP 16; O2SAT 98
[2023-04-15 20:17] VITALS: BP 138/81; PULSE 92; RESP 16; TEMP 98.6; O2SAT 98
[2023-04-16 07:00] VITALS: RESP 18; O2SAT 99
[2023-04-16 08:00] VITALS: BP 149/89; PULSE 91; RESP 18; TEMP 96.2; O2SAT 99
[2023-04-16 19:00] VITALS: RESP 16; O2SAT 99
[2023-04-16 19:34] VITALS: BP 141/73; PULSE 82; RESP 18; TEMP 97.1; O2SAT 99
[2023-04-17 07:30] VITALS: BP 135/83; PULSE 78; RESP 16; TEMP 97.6; O2SAT 96
[2023-04-17 19:00] VITALS: BP 124/68; PULSE 94; RESP 16; TEMP 97.4; O2SAT 96
[2023-04-17 19:30] VITALS: RESP 16; O2SAT 96
[2023-04-18 07:00] VITALS: BP 113/60; PULSE 81; RESP 14; TEMP 97.6; O2SAT 96
[2023-04-18 19:00] VITALS: BP 141/87; PULSE 94; RESP 18; TEMP 97.2; O2SAT 98
[2023-04-19 06:11] LABS: BILIRUBIN,URINE NEGATIVE (Neg); CLARITY,URINE TURBID (Clear); COLOR,URINE YELLOW (Yellow); GLUCOSE, URINE NEGATIVE (Neg); KETONES,URINE NEGATIVE (Neg); LEUKOCYTE ESTERASE ,URINE SMALL (Neg); NITRITES, URINE NEGATIVE (Neg); OCCULT BLOOD,URINE NEGATIVE (Neg); PROTEIN,URINE NEGATIVE (Neg); UROBILINOGEN,URINE 0.2 E.U/dL (0.2-1.0)
[2023-04-19 06:14] LABS: UA COLLECTION TYPE CLN CATCH MIDSTREAM
[2023-04-19 06:44] LABS: SQUAMOUS EPITHELIAL CELL,UR MANY /LPF (FEW)
[2023-04-19 06:45] LABS: TRANSITIONAL EPI CELLS,URINE MODERATE /HPF
[2023-04-19 06:46] LABS: BACTERIA,URINE 2+ /HPF (Neg); RBC,URINE 0-2 /HPF (0-2)
[2023-04-19 06:48] LABS: MUCUS STRANDS MODERATE /LPF (Neg)
[2023-04-19 07:00] VITALS: BP 137/80; PULSE 72; RESP 16; TEMP 97.5; O2SAT 98
[2023-04-19 08:42] VITALS: RESP 16; O2SAT 98
[2023-04-19 10:57] LABS: BILIRUBIN,URINE NEGATIVE (Neg); CLARITY,URINE SLIGHTLY CLOUDY (Clear); COLOR,URINE YELLOW (Yellow); GLUCOSE, URINE NEGATIVE (Neg); KETONES,URINE NEGATIVE (Neg); LEUKOCYTE ESTERASE ,URINE SMALL (Neg); NITRITES, URINE NEGATIVE (Neg); OCCULT BLOOD,URINE NEGATIVE (Neg); PROTEIN,URINE NEGATIVE (Neg); UROBILINOGEN,URINE 0.2 E.U/dL (0.2-1.0)
[2023-04-19 11:02] LABS: HYALINE CASTS 0-3 /LPF (NEGATIVE); SQUAMOUS EPITHELIAL CELL,UR MANY /LPF (FEW)
[2023-04-19 11:03] LABS: BACTERIA,URINE 3+ /HPF (Neg); WBC,URINE 30-50 /HPF (0-4)
[2023-04-19 11:04] LABS: RBC,URINE 0-2 /HPF (0-2); TRANSITIONAL EPI CELLS,URINE FEW /HPF
[2023-04-19 11:06] LABS: UA COLLECTION TYPE VOIDED
[2023-04-19] MEDS ORDERED: sulfamethoxazole/trimethoprim SS (400mg/80mg) tab (single-strength) PO SCH (19:00)
[2023-04-19] MEDS: sulfamethoxazole/trimethoprim DS (800/160mg) tablet PO SCH (19:00)
[2023-04-19] MEDS ORDERED: sulfamethoxazole/trimethoprim DS (800/160mg) tablet PO SCH ×2 (19:00)
[2023-04-19 20:00] VITALS: BP 131/83; PULSE 79; RESP 18; TEMP 97.2; O2SAT 98
[2023-04-19] MEDS: mirtazapine 15mg tablet PO SCH (21:46)
[2023-04-20 02:00] VITALS: BP 131/83; PULSE 79; RESP 18; TEMP 97.2; O2SAT 98
[2023-04-20 07:36] VITALS: RESP 16; O2SAT 98
[2023-04-20 07:47] LABS: BASOPHILS % (AUTO) 0.7 % (0-1); EOSINOPHILS # (AUTO) 0.1 X10'3 (0-0.9); EOSINOPHILS % (AUTO) 1.9 % (0-6); HEMATOCRIT 40.3 % (35.0-45.0); HEMOGLOBIN 13.7 g/dl (12.0-16.0); LYMPHOCYTES # (AUTO) 2.1 X10'3 (1.1-4.8); LYMPHOCYTES % (AUTO) 39.2 % (21-51); MEAN CORPUSCULAR HGB CONC 34.1 g/dL (33.0-36.5); MEAN CORPUSCULAR VOLUME 93.8 FL (78-98); MEAN PLATELET VOLUME 7.4 FL (7.4-10.4); MONOCYTES # (AUTO) 0.5 X10'3 (0-0.9); MONOCYTES % (AUTO) 9.2 % (2-12); NEUTROPHILS # (AUTO) 2.6 X10'3 (1.8-7.7); PLATELET COUNT 260 X10'3 (140-440); RED BLOOD COUNT 4.29 X10'6 (4.20-5.60); RED CELL DISTRIBUTION WIDTH 13.4 % (11.5-14.5); WHITE BLOOD COUNT 5.2 X10'3 (4.5-11.0)
[2023-04-20 08:00] VITALS: BP 115/67; PULSE 85; RESP 16; TEMP 97.4; O2SAT 97
[2023-04-20 08:11] LABS: ANION GAP 9 (8-16); CHLORIDE 103 MMOL/L (99-107); GLUCOSE 106 MG/DL (70-104); POTASSIUM 4.1 MMOL/L (3.5-5.1); SODIUM 136 MMOL/L (135-145); TOTAL CARBON DIOXIDE 24.3 MMOL/L (24-32)
[2023-04-20 08:12] LABS: ALANINE AMINOTRANSFERASE 26 U/L (12-78); ALBUMIN 2.8 G/DL (3.4-5.0); ALKALINE PHOSPHATASE 64 IU/L (46-116); ASPARTATE AMINO TRANSFERASE 20 U/L (10-37); BILIRUBIN,TOTAL 0.5 MG/DL (0.1-1.0); BLOOD UREA NITROGEN 12 MG/DL (7-18); BUN/CREATININE RATIO 21.8 (10.0-20.0); CALCIUM 7.8 MG/DL (8.5-10.1); CREATININE 0.55 MG/DL (0.40-0.90); TOTAL PROTEIN 5.5 G/DL (6.4-8.2); eCRCL 64 ML/MIN; eGFR > 90 ML/MIN
[2023-04-20 19:00] VITALS: RESP 16; O2SAT 99
[2023-04-20 19:40] VITALS: BP 114/60; PULSE 80; RESP 16; TEMP 97.8; O2SAT 99
[2023-04-21 07:23] VITALS: RESP 16; O2SAT 98
[2023-04-21 07:27] VITALS: BP 138/85; PULSE 88; RESP 12; TEMP 97.6; O2SAT 98
[2023-04-21 19:00] VITALS: RESP 16; O2SAT 98
[2023-04-21 20:00] VITALS: BP 128/68; PULSE 86; RESP 16; TEMP 97.8; O2SAT 98
[2023-04-22 07:00] VITALS: RESP 16; O2SAT 98
[2023-04-22 07:35] VITALS: BP 116/72; PULSE 84; RESP 12; TEMP 98.1; O2SAT 96
[2023-04-22 19:00] VITALS: RESP 15; O2SAT 97
[2023-04-22 20:00] VITALS: BP 140/78; PULSE 80; RESP 15; TEMP 98.2; O2SAT 97
[2023-04-22] MEDS: atorvastatin 10mg tablet PO SCH (21:32)
[2023-04-23 07:00] VITALS: RESP 16; O2SAT 97
[2023-04-23 07:58] VITALS: BP 120/72; PULSE 74; RESP 16; TEMP 97.4; O2SAT 97
[2023-04-23 20:00] VITALS: BP 129/71; PULSE 81; RESP 19; TEMP 98.9; O2SAT 100
[2023-04-24 07:00] VITALS: RESP 17; O2SAT 98
[2023-04-24 08:00] VITALS: BP 135/83; PULSE 78; RESP 17; TEMP 98.3; O2SAT 98
[2023-04-24 19:00] VITALS: RESP 16; O2SAT 99
[2023-04-24 20:00] VITALS: BP 123/69; PULSE 81; RESP 16; TEMP 97.1; O2SAT 99
[2023-04-25 07:30] VITALS: BP 137/81; PULSE 84; RESP 16; TEMP 97.8; O2SAT 96
[2023-04-25] MEDS: acetaminophen 325mg tablet PO PRN (11:14)
[2023-04-25 20:00] VITALS: BP 131/71; PULSE 74; RESP 18; TEMP 97.1; O2SAT 97
[2023-04-26 07:00] VITALS: BP 140/77; PULSE 77; RESP 16; TEMP 97.1; O2SAT 97
[2023-04-26 13:55] VITALS: BP 118/60; PULSE 81
[2023-04-26 13:56] VITALS: BP 130/74; PULSE 92
[2023-04-26 19:00] VITALS: RESP 16; O2SAT 97
[2023-04-26 20:00] VITALS: BP 132/81; PULSE 88; RESP 20; TEMP 98.2; O2SAT 99
[2023-04-27 07:00] VITALS: RESP 16; O2SAT 97
[2023-04-27 08:00] VITALS: BP 152/74; PULSE 86; RESP 16; TEMP 97.6; O2SAT 97
[2023-04-27 19:00] VITALS: RESP 16; O2SAT 99
[2023-04-27 20:00] VITALS: BP 124/76; PULSE 87; RESP 16; TEMP 97.7; O2SAT 99
[2023-04-28 07:00] VITALS: RESP 16; O2SAT 97
[2023-04-28 07:27] VITALS: BP 135/73; PULSE 76; RESP 16; TEMP 97.4; O2SAT 97
[2023-04-28 21:21] VITALS: RESP 16; O2SAT 98
[2023-04-29 07:00] VITALS: RESP 16; O2SAT 96
[2023-04-29 08:00] VITALS: PULSE 82; RESP 16; TEMP 97.4
[2023-04-29 19:00] VITALS: RESP 16; O2SAT 99
[2023-04-29 20:00] VITALS: BP 130/70; PULSE 75; RESP 16; TEMP 97.8; O2SAT 99
[2023-04-30 07:50] VITALS: BP 120/56; PULSE 75; RESP 20; TEMP 98.5; O2SAT 96
[2023-04-30 10:00] VITALS: RESP 20; O2SAT 96
[2023-04-30 19:00] VITALS: RESP 18; O2SAT 99
[2023-04-30 19:48] VITALS: BP 148/82; PULSE 87; RESP 18; TEMP 96.7; O2SAT 99
[2023-04-30] MEDS: busPIRone 5mg tablet PO SCH (21:06)
[2023-04-30] MEDS: diphenhydrAMINE 25mg capsule PO ONE (21:30)
[2023-05-01 07:56] VITALS: BP 128/63; PULSE 76; RESP 16; TEMP 98.2; O2SAT 98
[2023-05-01 09:29] VITALS: RESP 16; O2SAT 98
[2023-05-01] MEDS ORDERED: polyethylene glycol 3350 17gm powd pack PO PRN (14:15)
[2023-05-01 19:00] VITALS: RESP 18; O2SAT 99
[2023-05-01 19:14] LABS: BILIRUBIN,URINE NEGATIVE (Neg); CLARITY,URINE SLIGHTLY CLOUDY (Clear); COLOR,URINE STRAW (Yellow); GLUCOSE, URINE NEGATIVE (Neg); KETONES,URINE NEGATIVE (Neg); LEUKOCYTE ESTERASE ,URINE MODERATE (Neg); NITRITES, URINE NEGATIVE (Neg); OCCULT BLOOD,URINE TRACE-INTACT (Neg); PROTEIN,URINE NEGATIVE (Neg); UROBILINOGEN,URINE 0.2 E.U/dL (0.2-1.0)
[2023-05-01 19:15] LABS: UA COLLECTION TYPE CLN CATCH MIDSTREAM
[2023-05-01 19:34] LABS: BACTERIA,URINE 2+ /HPF (Neg); RBC,URINE 0-2 /HPF (0-2); SQUAMOUS EPITHELIAL CELL,UR MANY /LPF (FEW); WBC,URINE 20-30 /HPF (0-4); YEAST MANY /HPF (NEGATIVE)
[2023-05-01 19:51] VITALS: BP 135/73; PULSE 89; RESP 18; TEMP 98.6; O2SAT 98
[2023-05-01] MEDS: ciprofloxacin 250mg tablet PO SCH (22:00)
[2023-05-01] MEDS: traMADol 50MG tablet PO PRN (22:11)
[2023-05-02 07:00] VITALS: BP 135/64; PULSE 70; RESP 16; TEMP 97.8; O2SAT 97
[2023-05-02 19:00] VITALS: RESP 18; O2SAT 97
[2023-05-02 20:00] VITALS: BP 139/70; PULSE 87; RESP 18; TEMP 97.7; O2SAT 97
[2023-05-03 07:00] VITALS: BP 158/76; PULSE 74; RESP 16; TEMP 97.8; O2SAT 98
[2023-05-03] MEDS: busPIRone 5mg tablet PO SCH (08:17)
[2023-05-03] MEDS: polyethylene glycol 3350 17gm powd pack PO PRN (09:29)
[2023-05-03 19:00] VITALS: BP 122/59; PULSE 72; RESP 16; RESP 18; TEMP 97.6; O2SAT 97; O2SAT 98
[2023-05-04 07:00] VITALS: BP 115/61; PULSE 71; RESP 16; TEMP 98; O2SAT 96
[2023-05-04] MEDS: LIDOcaine 5% patch TP SCH (08:00)
[2023-05-04] MEDS: busPIRone 5mg tablet PO SCH (08:00)
[2023-05-04 19:00] VITALS: RESP 16; O2SAT 99
[2023-05-04 20:00] VITALS: BP 130/70; PULSE 81; RESP 16; TEMP 98.3; O2SAT 99
[2023-05-05 07:00] VITALS: RESP 12; O2SAT 97
[2023-05-05 07:47] VITALS: BP 125/66; PULSE 75; RESP 12; TEMP 97.6; O2SAT 97
[2023-05-05] MEDS ORDERED: sodium bicarbonate 1meq/ml syr 150 ML in dextrose 5%-water 1,000 ML IV ONE (09:50)
[2023-05-05] MEDS ORDERED: diphenhydrAMINE 25mg capsule PO PRN (09:50)
[2023-05-05] MEDS ORDERED: normal saline 1,000 ML IV SCH (09:50)
[2023-05-05 19:00] VITALS: RESP 16; O2SAT 97
[2023-05-05 20:00] VITALS: BP 121/63; PULSE 87; RESP 16; TEMP 98.3; O2SAT 97
[2023-05-06 07:00] VITALS: RESP 12; O2SAT 97
[2023-05-06 07:29] VITALS: BP 108/66; PULSE 75; RESP 12; TEMP 97.5; O2SAT 97
[2023-05-06] MEDS ORDERED: POLY15DR13 EACHEYE (10:27)
[2023-05-06] MEDS ORDERED: PROP15DR EACHEYE (15:49)
[2023-05-06] MEDS ORDERED: Propylene Glycol/Peg 400 (Systane 0.3-0.4% Eye Drops) EACHEYE PRN (16:00)
[2023-05-06 19:40] VITALS: RESP 17; O2SAT 97
[2023-05-06 19:56] VITALS: BP 148/68; PULSE 82; RESP 17; TEMP 98.1; O2SAT 97
[2023-05-07 07:00] VITALS: BP 111/55; PULSE 78; RESP 18; TEMP 97.7; O2SAT 98
[2023-05-07 19:00] VITALS: RESP 20; O2SAT 100
[2023-05-07 20:00] VITALS: BP 139/71; PULSE 108; RESP 20; TEMP 97.9; O2SAT 100
[2023-05-08 07:00] VITALS: RESP 16; O2SAT 98
[2023-05-08 07:44] VITALS: BP 117/60; PULSE 82; RESP 16; TEMP 97.3; O2SAT 98
[2023-05-08 19:00] VITALS: RESP 16; O2SAT 99
[2023-05-08 20:00] VITALS: BP 118/58; PULSE 85; RESP 16; TEMP 97.5; O2SAT 99
[2023-05-09 07:00] VITALS: RESP 16; O2SAT 97
[2023-05-09 07:37] VITALS: BP 139/68; PULSE 73; RESP 16; TEMP 97.2; O2SAT 97
[2023-05-09 19:00] VITALS: RESP 18; O2SAT 97
[2023-05-09 20:30] VITALS: BP 130/73; PULSE 86; RESP 18; TEMP 97.4; O2SAT 97
[2023-05-10 07:30] VITALS: BP 125/67; PULSE 70; RESP 16; TEMP 98.4; O2SAT 96
[2023-05-10 07:59] VITALS: RESP 16; O2SAT 97
[2023-05-10] MEDS: HALLS - SOOTHE MENTHOL 1.8 MG cough drop LOZENGE MM PRN (13:46)
[2023-05-10] MEDS ORDERED: BUSP5TAB26 PO (14:14)
[2023-05-10] MEDS ORDERED: MIRT-87 PO (14:14)
[2023-05-10] MEDS ORDERED: LIDO700A47 TP (14:14)
[2023-05-10] MEDS ORDERED: BREX2TAB PO (14:14)
== END 2023-05-10 16:32 | disposition home or self-care (01) | DRG 885 ==
LOC: ER 16:33 → ADULT MH 04-14 12:03
PROVIDERS: ADMIT Psychiatry & Neurology Psychiatry; ATTEND Psychiatry & Neurology Psychiatry
PROC: GZHZZZZ Group Psychotherapy (ICD-10-PCS; principal; 2023-04-15)
PROC: GZ56ZZZ Individual Psychotherapy, Supportive (ICD-10-PCS; 2023-04-15)
DX: F33.3 Major depressive disorder, recurrent, severe with psychotic symptoms (principal); R45.851 Suicidal ideations; M80.08XA Age-related osteoporosis with current pathological fracture, vertebra(e), initial encounter for fracture; N39.0 Urinary tract infection, site not specified; G89.29 Other chronic pain; K59.00 Constipation, unspecified; R13.10 Dysphagia, unspecified; E03.9 Hypothyroidism, unspecified; F41.1 Generalized anxiety disorder; E78.00 Pure hypercholesterolemia, unspecified; Z20.822 Contact with and (suspected) exposure to COVID-19; R42 Dizziness and giddiness; Z82.62 Family history of osteoporosis; Z91.51 Personal history of suicidal behavior; Z81.8 Family history of other mental and behavioral disorders; Z82.0 Family history of epilepsy and other diseases of the nervous system; Z88.1 Allergy status to other antibiotic agents; Z79.899 Other long term (current) drug therapy
CPT/HCPCS: 36415; 72110; 80048; 80053; 80061; 80305; 80320; 81001; 83036; 84443; 85025; 87081; 87635; 96372; 99285; J1200; J1630; J2060